=== PATIENT | female | born 1980 | race African-American/Black ===

== ENCOUNTER 2016-07-18 18:21 | Inpatient (IN) | payer BC ==
--- NOTE | ~2016-07-18 | OP ---
Record Of Operation [facility] [address] [place]. [address] NAME: POONAM AGRAWAL : 78 STATUS : ADM IN PAT#: [id number] AGE: 35 ADM/REG DATE : 07/18/16 MR#: [id number] REPORT SERV DATE: 07/22/16 DICTATED BY: MADELAINE TELLEZ DATE: 07/22/16 REPORT STATUS : Draft TRANSCRIBED BY: WILL DATE: 07/22/16 DATE OF PROCEDURE: 07/22/2016 TITLE OF PROCEDURE: Central venous catheter placement. INDICATIONS: Shock and need for central access. PROCEDURE NOTE: A time-out was completed verifying the correct patient and procedure. The patient was placed in a dependent position. The patient's right neck was prepped and draped in a sterile fashion. 1% lidocaine was used to anesthetize the surrounding skin area. A triple-lumen catheter was introduced into the right internal jugular vein using the Seldinger technique under ultrasound guidance. The catheter was threaded smoothly over the wire and appropriate blood return was obtained. Each lumen of the catheter was evacuated of air and flushed with sterile saline. The catheter was then sutured in place to the skin and a sterile dressing applied. I was present for the entire procedure. Chest x-ray was ordered to assess for pneumothorax. The patient tolerated the procedure well, and there were no complications. SHYAM/WILL Madelaine Tellez MD / [id number] CC: Yolanda Hamm M.D.
--- NOTE | ~2016-07-18 | DS ---
Discharge Summary [facility] [id number] [place]. [address] NAME: POONAM AGRAWAL : 78 STATUS : DIS IN PAT#: [id number] AGE: 35 ADM/REG DATE : 07/18/16 MR#: [id number] REPORT SERV DATE: 07/28/16 DICTATED BY: MIKE REDDY II DATE: 07/28/16 REPORT STATUS : Draft TRANSCRIBED BY: MODL DATE: 07/28/16 ADMISSION DATE: 07/18/2016 DISCHARGE DATE: 07/28/2016 DISCHARGE DIAGNOSES: 1. Clostridium difficile colitis. 2. Septic shock. 3. Acute thrombocytopenia, likely secondary to the above. 4. Anemia. 5. Chronic hypoxic respiratory failure. 6. Elevated liver function tests, likely from septic shock. 7. History of multiple deep venous thromboses/pulmonary emboli, on chronic Coumadin. 8. History of lupus. 9. Connective tissue disease and rheumatoid arthritis, on chronic prednisone. 10.Factor V Leiden. 11.Diabetes mellitus type 2. 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 13.Chronic pain, on chronic narcotics. 14.Suspected gastroparesis. 15.Reported hematochezia and epistaxis prior to admission. 16.Hematuria. CONSULT: 1. Dr. Cline with Urology. 2. Dr. Neo with GI. 3. Dr. Tellez and Dr. Allen with Critical Care. 4. Dr. Urena with Infectious Disease. PROCEDURES: EGD and colonoscopy by Dr. Noe showing normal small bowel, stomach, GE junction, and esophagus. Colon showed normal colon with a few diverticula in the ascending colon and descending colon as well as grade 2 hemorrhoids. Random biopsies taken. BRIEF HISTORY OF PRESENT ILLNESS: The patient is a 35-year-old female with a complicated past medical history as per above, who presented to [facility] with reports of nosebleeds, rectal bleeding, hematuria, and weakness. For detailed history and physical examination, please see Dr. Murdock's note from 07/19/2015. HOSPITAL COURSE: On admission, the patient's white count was 11, platelets 320, INR 1.6. The concern was for possible GI bleeding; however, stool guaiac was negative x3. Also, her initial urinalysis showed mostly blood but also 21 white cells and was initially started on meropenem. She subsequently began having diarrhea as well as lightheadedness, nausea and became hypotensive as well as developed a fever of 101. Her procalcitonin went to 4.6, her creatinine thom to 1.4, and lactic acid up to 6.7. Her liver enzymes also went up to 645 and 1100 with a white count of 17. Her platelets also began to drop with a normal urinalysis. She was transferred to the ICU, placed on Levophed. Infectious Disease was Discharge Summary [address] [place]. [address] NAME: POONAM AGRAWAL : 79 STATUS : DIS IN PAT#: [id number] AGE: 35 ADM/REG DATE : 07/18/16 MR#: [id number] REPORT SERV DATE: 07/28/16 DICTATED BY: MIKE REDDY II DATE: 07/28/16 REPORT STATUS : Draft TRANSCRIBED BY: WILL DATE: 07/28/16 consulted and found the patient to have C. diff. She was placed on her p.o. vancomycin and IV Flagyl. Subsequently, the patient's white count has come down. Her diarrhea has improved. She was taken off pressors and subsequently transferred out of the ICU. Her hemoglobin also dropped down to as well as 8.8. GI did an EGD and colonoscopy with the above-mentioned normal results. Her acute anemia was possibly secondary to prior bleeding with IV fluids and septic shock. Currently, her hemoglobin is trending up to 9.5. There is no evidence of bleeding, and she seemed to be stabilized. Her platelet counts also dropped down to as low as 67 before trending back up, currently already back to 314. A peripheral smear was done given the patient's history of TTP and was negative for schistocytes, and her platelets appeared normal though low. It seems her thrombocytopenia is likely related to her septic shock in the setting of C. diff colitis. Otherwise, the patient appears to be back to her baseline. Her Coumadin has been restarted and her INR back to 1.9. Her INR was subtherapeutic on admission, and she was getting a fairly low dose of 1.5 mg of Coumadin daily. She has been getting doses of 5 mg over the last two days, so we will increase her home dose to 2 mg daily and have her follow up for a repeat INR as soon as possible this week. Regarding her rheumatologic history, she continues to be on prednisone 20 mg daily. Her leflunomide and Humira have been on hold, and she will need to follow up with her embedded linux developer. She also is still on 2 to 3 L nasal cannula consistent with her home dose. Her chest x-ray had shown stable cardiomegaly without acute cardiac decompensation. Other lab data from admission included a negative HIT panel. A hep B surface antibody quant of 5.4, which is apparently low, is supposed to greater than 10. Hep C antibody nonreactive. DAGO 1:160 homogeneous. Upper extremity Doppler with a right upper extremity superficial cephalic vein acute thrombus. Normal alpha-1 antitrypsin, ceruloplasmin, hep A, and haptoglobin of 258. Her liver enzymes also trended down. At this point, she is stable for discharge though will need followup with her primary care physician as well as her embedded linux developer. Apparently, she has been referred to [facility]. She will continue vancomycin q.i.d. for nine more days per Dr Urena. DISCHARGE MEDICATIONS: 1. Norvasc 2.5 mg p.o. daily. 2. Os-Jj with vitamin D 500 mg p.o. daily. 3. Ferrous sulfate 300 mg p.o. t.i.d. 4. Levemir 32 units subcu daily. 5. Insulin aspart per sliding scale. 6. Metoprolol tartrate 50 mg p.o. b.i.d. 7. Protonix 40 mg p.o. b.i.d. 8. Potassium chloride 10 mEq p.o. daily. 9. Lyrica 150 mg p.o. b.i.d. 10.Carafate 1 g p.o. a.c. and at bedtime. 11.Coumadin 2 mg p.o. daily. 12.Klonopin 1 mg p.o. b.i.d. 13.Prednisone 20 mg p.o. daily. 14.Symbicort two puffs inhaled b.i.d. p.r.n. 15.Benadryl 25 mg p.o. t.i.d. p.r.n. 16.MiraLAX p.r.n. 17.Combivent 2 puffs t.i.d. p.r.n. 18.Albuterol p.r.n. Discharge Summary [place] [id number] [address] NAME: POONAM AGRAWAL : 79 STATUS : DIS IN PAT#: [id number] AGE: 35 ADM/REG DATE : 07/18/16 MR#: [id number] REPORT SERV DATE: 07/28/16 DICTATED BY: MIKE REDDY II DATE: 07/28/16 REPORT STATUS : Draft TRANSCRIBED BY: WILL DATE: 07/28/16 19.Hydralazine 25 mg p.o. t.i.d. 20.Albuterol p.r.n. 21.Tramadol 50 mg p.o. b.i.d. p.r.n. 22.Phenergan p.r.n. 23.Dilaudid 4 mg p.o. q.4 hours p.r.n. pain. DISCHARGE INSTRUCTIONS: The patient will be discharged home and follow up with her primary care physician, Dr. Epi Almanza this week for followup INR, CBC, CMP. MORA/WILL Mike Reddy II, MD / [id number]
--- NOTE | ~2016-07-18 | CN ---
Consultation Report [place] [id number] [place]. [address] NAME: POONAM AGRAWAL : 79 STATUS : ADM IN PAT#: [id number] AGE: 35 ADM/REG DATE : 07/18/16 MR#: [id number] REPORT SERV DATE: 07/20/16 DICTATED BY: PASQUALE JIMENEZ DATE: 07/20/16 REPORT STATUS : Draft TRANSCRIBED BY: MODL DATE: 07/20/16 CONSULTATION DATE OF CONSULTATION: 07/20/2016 HISTORY OF PRESENT ILLNESS: Ms. Saurabh Melo is a lady, who has a history of lupus, multiple episodes of pulmonary embolism, is on chronic anticoagulation with Coumadin. She was admitted one month ago and was found to have an INR of 7.5, and was sent home. She had upper endoscopy done which showed large quantity of food in the stomach suggestive of gastroparesis and was sent home with advice to come back for a colonoscopy as an outpatient. The patient has presented with complaints of bleeding from the nose, bleeding from the rectum, and hematuria, and has a hemoglobin which is 11.5, which is higher than what she presented with. REVIEW OF SYSTEMS: A 10-point review of system is normal other than for the GI bleeding. PAST MEDICAL HISTORY: Significant for lupus, rheumatoid arthritis, mixed connective tissue disease, recurrent DVT and PE, currently on Coumadin; history of multi for central venous catheter infections, requiring plasmapheresis; hypertension; insulin-dependent diabetes mellitus, type 2; chronic hypoxic respiratory failure, on 2 L of nasal cannula; recurrent E. coli urinary tract infection; history of Rika, fungemia, and streptococcus bacteremia; history of chronic pain on multiple narcotics use; possible gastroparesis; and highly suspicious for illicit drug use. PAST SURGICAL HISTORY: Ureteral stent placement, abdominal hysterectomy, right shoulder surgery, tonsillectomy, cholecystectomy, and . CURRENT MEDICATIONS: Humira subcu every two weeks, Norvasc 2.5 mg daily, Symbicort two puffs inhalation b.i.d., calcium with vitamin D 500 mg daily, Klonopin 1 mg b.i.d., Benadryl 25 mg p.o. t.i.d. p.r.n., ferrous sulfate 300 mg one tab t.i.d., insulin sliding scale, Combivent inhaler, Arava 10 mg daily, metoprolol 50 mg p.o. b.i.d., Protonix 40 mg b.i.d., MiraLAX 17 g p.o. b.i.d., potassium chloride 10 mEq daily, prednisone 20 mg daily, Lyrica 150 mg b.i.d., Phenergan 25 mg q.8 hours, Carafate 10 mL three times a day, tramadol 50 mg b.i.d. p.r.n., and Coumadin 1 mg daily. SOCIAL HISTORY: Denies any alcohol, IV drug use, or any cigarettes. FAMILY HISTORY: Significant for coronary artery disease, and lupus in her mother. LABORATORY DATA: Show a hemoglobin of 11.58, platelet count is 329. INR is 1.4. Sodium is 145, potassium is 3.3, chloride is 108, and creatinine is 0.87. EKG is normal. PHYSICAL EXAMINATION: Consultation Report [address] [address] NAME: POONAM AGRAWAL : 79 STATUS : ADM IN [facility]#: [id number] AGE: 35 ADM/REG DATE : 07/18/16 MR#: [id number] REPORT SERV DATE: 07/20/16 DICTATED BY: PASQUALE JIMENEZ DATE: 07/20/16 REPORT STATUS : Draft TRANSCRIBED BY: WILL DATE: 07/20/16 VITAL SIGNS: Her temperature is normal. NECK: Supple. Trachea is central. Carotids are well felt on both sides. CARDIOVASCULAR: S1 and S2 are heard. There is no S3. EXTREMITIES: Dorsalis pedis and posterior tibial are well felt on both sides. IMPRESSION: 1. History of bleeding from the rectum. 2. History of epistaxis and hematuria. 3. Lupus erythematosus, history of recurrent deep vein thrombosis. Insulin-dependent diabetes mellitus, multiple mixed connective tissue disease with rheumatoid arthritis and lupus. PLAN: The patient needs to be taken off Coumadin and Lovenox, time to do the procedure, we will do a colonoscopy, what I would suggest is keeping the patient off Coumadin, turning the patient on Lovenox 100 mg subcu q.12 hours, and doing a colonoscopy on Saturday. GRAHAM/WILL Pasquale Jimenez M.D. / [id number] CC: Pretty Neves M.D.
--- NOTE | ~2016-07-18 | CN ---
Consultation Report [facility] [address] [place]. [address] NAME: POONAM AGRAWAL : 79 STATUS : ADM Juany PAT#: [id number] AGE: 35 ADM/REG DATE : 07/18/16 MR#: [id number] REPORT SERV DATE: 07/19/16 DICTATED BY: KATIE MYRICK DATE: 07/19/16 REPORT STATUS : Draft TRANSCRIBED BY: MODL DATE: 07/19/16 CONSULTATION DATE OF CONSULTATION: 07/19/2016 IMPRESSION: 1. Gross hematuria secondary to Coumadin. This is recurrent and the patient is urinating without difficulty. 2. History of renal calculus; however, not present on 06/22/2016 CT scan. 3. Urinary tract infection, avoiding the culture. Last several have been E. coli, treated with amikacin. PLAN: 1. Await for culture and defer to I and D for treatment and possibly consider oral nightly prophylaxis at discharge. 2. No Fernandez catheter placement at this time. We will consider if patient having difficulty to void. 3. Dr. Aiken will follow tomorrow. HISTORY OF PRESENT ILLNESS: The is a 35-year-old -[place] female who has seen Dr. Aiken on several occasions at [facility]; however, she is an established outpatient with Dr. Bonilla at [place]. She presented with gross hematuria, rectal bleeding. The patient states this happens every time she starts Coumadin. She is on Coumadin for approximately for a week. She has not passed any clots. She is urinating well. The patient does also complain of urinary tract infection which she has been having on and off for the past several months but has only received treatment in hospital, nothing outpatient. The patient states that she has bladder spasm, and was diagnosed with IC in December with the cystoscopy. The patient took doxycycline for a short period of time to help with the spasms and that has resolved. However, the patient states she presents with the urinary tract infection with abdominal cramping and foul odor. The patient also states she has frequency and urgency causing her to wear incontinence pads. PAST MEDICAL HISTORY: Quite extensive and includes hypercoagulation, anticoagulation state with history of recurrent DVTs, history of pulmonary embolism. She is on Coumadin at this time, every other anticoagulation that she has tried, she develops clots on; however, the patient states that when she is on Coumadin, she has occult blood and gross hematuria. Other medical history includes rheumatoid arthritis, lupus, and gastroparesis. MEDICATIONS: Reviewed in chart. ALLERGIES: REVIEWED IN CHART. PHYSICAL EXAMINATION: GENERAL: She is a pleasant Aferican-[place] female, in no distress. She is alert, Consultation Report [place] [id number] [facility] [place]. [address] NAME: POONAM AGRAWAL : 79 STATUS : ADM Juany PAT#: [id number] AGE: 35 ADM/REG DATE : 07/18/16 MR#: [id number] REPORT SERV DATE: 07/19/16 DICTATED BY: KATIE MYRICK DATE: 07/19/16 REPORT STATUS : Draft TRANSCRIBED BY: WILL DATE: 07/19/16 oriented, and conversive. She is on supplemental O2 oxygen via nasal cannula. ABDOMEN: Mildly obese, soft, nontender, nondistended. No palpable masses noted. Complains of pain. VITAL SIGNS: The patient is afebrile. Blood pressure 135/94, respirations 18, pulse 78. LAB VALUES: Creatinine is 0.86. WBC is 8.7, INR is 1.4. CT completed on [facility] on 06/22/2016 showed no stones, masses, or cysts in the kidneys or the ureters and an unremarkable appearance of the bladder. She has had negative cytologies done previously; however, we have records of these. BRANDEE/WILL KATIE MYRICK NP / [id number] CC: Pretty Neves M.D.
--- NOTE | ~2016-07-18 | CN ---
Consultation Report [facility] [address] [place]. [address] NAME: POONAM AGRAWAL : 79 STATUS : ADM IN PAT#: [id number] AGE: 35 ADM/REG DATE : 07/18/16 MR#: [id number] REPORT SERV DATE: 07/23/16 DICTATED BY: SERGIO BURCH DATE: 07/23/16 REPORT STATUS : Draft TRANSCRIBED BY: MODKurtis DATE: 07/23/16 INFECTIOUS DISEASE CONSULT DATE OF CONSULTATION: REASON FOR CONSULT: C. diff diarrhea. HISTORY OF PRESENT ILLNESS: A 35 years old black lady with "mixed connective tissue disease," on chronic prednisone, chronic oxygen use, diabetes, history of PE and DVTs, reported history of factor V deficiency, history of kidney stones, who was seen in the past mostly by my colleague, Dr. Wade with ESBL E. coli UTI. She told the nurse that remotely she had a history of C. diff. She has been hospitalized numerous times for example. She was here in April with ESBL E. coli UTI, then in May between the and the when she grew the same organism. In June, with some history of bleeding or question of bleeding. On the 07 of July, she had an upper GI endoscopy by Dr. Noe that showed no lesions, but the stomach was filled up. She might have been hospitalized at [facility] as well. She states that she was taking nitrofurantoin at home. Previously, she received Humira and leflunomide but they were stopped by her armored cable machine operator. She came in on 07/18/2016 with bloody urine, blood clots in the stools, some blood when blowing her nose. To me, she did not report this but in the H and P, there was a mention of weakness and abdominal cramping. On admission, WBC was 11, platelets 320, INR 1.6, creatinine 0.9, bilirubin 0.1. Urine culture was done on the and was negative. Stool guaiac were negative x3. She was started on meropenem. Admission urinalysis showed 21 white blood cells, many red blood cells and rare bacteria. She states that three days ago she woke up with body aches. Then two days ago, she had body aches and she thought she is getting the flu. She states that during the night she got up to the bathroom and it is not uncommon for her to sit there for a long time and fall asleep. The nurse thought that she passed out, but she told the doctors she just fell asleep. Two days ago, when the nurse came to help her to get up to the bathroom. She was lightheaded and nauseated and then started having loose stools. Somewhere during the night, there is some nurse's notes mentioning that she was weak, lethargic, falling asleep. She had some hypoxemia, so she was put on non-rebreather mask, then later was transitioned to 4 L. At some point, she was transferred to ICU when she was hypotensive. An attempt was made to put a Fernandez catheter. In the process of trying to place a Fernandez, she had more runny stools. She had some fever yesterday with a temp of 101 and very abnormal lab work. A procalcitonin was up to 4.6, creatinine doubled from 0.8 to 1.4, lactic acid was 6.7. Liver enzymes went up to 645 and 1100, WBC increased to 17, platelets dropped to 147, urinalysis had just 4 white blood cells. She was started on IV fluids, Levophed as well as she had microbiologic evaluation. Blood cultures were drawn. Stool for C. diff came positive, so vancomycin p.o. and Flagyl IV were started as well. Consultation Report [place] [id number] [place]. [address] NAME: POONAM AGRAWAL : 78 STATUS : ADM IN [facility]#: [id number] AGE: 35 ADM/REG DATE : 07/18/16 MR#: [id number] REPORT SERV DATE: 07/23/16 DICTATED BY: SERGIO BURCH DATE: 07/23/16 REPORT STATUS : Draft TRANSCRIBED BY: MODL DATE: 07/23/16 With all these measures, today she is better. She started voiding. She had one bowel movement early this morning. She does not require pressors. She is on 4 L of oxygen. ABG showed pH of 7.36, pCO2 of 35, PO2 of 23, saturation 96% on 32%. Lab work improved except the platelets dropped further to 67, and INR is higher 2.2. Creatinine, liver enzymes, lactic acid, and white blood cell count, all improved. Chest x-ray showed no active disease. She had actually a CT of the chest, abdomen, and pelvis three days ago but without contrast that showed no significant abnormalities. The patient does not have abdominal pain. No dysuria. She has some chronic shortness of breath, and maybe some cough, although I have not heard her cough while I was in the room. She has maybe some mild nausea, but no vomiting. PAST MEDICAL HISTORY: As I mentioned above plus prior history of line infections and urinary tract infection, history of kidney stones, pulmonary hypertension. An echocardiogram done with this admission is of poor quality, but showed some moderate tricuspid regurgitation and right ventricular systolic dysfunction, history of hysterectomy, cholecystectomy, shoulder surgery. ALLERGIES: HERE LISTED IS COMPAZINE. SOCIAL HISTORY: She has four children. Because of her illness, she moved in with other family and she has two of her children with her. 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 PHYSICAL EXAMINATION: GENERAL: Done in presence of her nurse Basia, the patient is alert, awake. She has multiple broken decayed teeth, some down to the roots. LUNGS: Decreased sounds but no wheezes, rhonchi, or rales. HEART: Regular rhythm. Distant sounds. ABDOMEN: Obese. Nontender to palpation. SKIN: Skin with a dark spot on the left forearm, dark striae on the abdomen. ASSESSMENT AND PLAN: 1. Clostridium difficile diarrhea. 2. Shock that is now resolved. 3. Mixed connective tissue disease on chronic prednisone. 4. History of ESBL Escherichia coli. Urine colonization with occasional urinary tract infections. 5. History of deep venous thromboses and pulmonary embolisms, on chronic Coumadin. 6. History of TTP in 2016. 7. Other medical problems. She has improved with IV fluids, p.o. vancomycin, IV Flagyl. Blood cultures from yesterday are so far negative. Admission urine culture was negative. CT scan of the chest, abdomen, pelvis without contrast was unremarkable three days ago. She has poor dentition and will need eventually further evaluation since she is at risk for infection. Consultation Report [address] [place]. [address] NAME: POONAM AGRAWAL : 78 STATUS : ADM IN [facility]#: [id number] AGE: 35 ADM/REG DATE : 07/18/16 MR#: [id number] REPORT SERV DATE: 07/23/16 DICTATED BY: SERGIO BURCH DATE: 07/23/16 REPORT STATUS : Draft TRANSCRIBED BY: WILL DATE: 07/23/16 MARK/WILL Sergio Burch M.D. / [id number] CC: Pretty Neves M.D.
--- NOTE | ~2016-07-18 | HP ---
History And Physical [place] [id number] [facility] [place]. [address] NAME: POONAM WILEY : 78 STATUS : ADM Juany PAT#: [id number] AGE: 35 ADM/REG DATE : 07/18/16 MR#: [id number] REPORT SERV DATE: 07/19/16 DICTATED BY: MIKE CORDOBA DATE: 07/18/16 REPORT STATUS : Draft TRANSCRIBED BY: MODL DATE: 07/18/16 DATE OF ADMISSION: 07/18/2016 POINT OF ENTRY: [facility]. PRIMARY AUDITING CONTROL CLERK: Dr. Faulkner. PRIMARY PROJECT ESTIMATOR: None at this time, has been referred to [facility]. CHIEF COMPLAINT: Nosebleeds, rectal bleeding, and hematuria as well as weakness. HISTORY OF PRESENT ILLNESS: Ms Wiley is a 35-year-old female with a history of lupus, rheumatoid arthritis, mixed connective tissue disease, as well as recurrent DVT and PE, currently on Coumadin who presents to the emergency department today with multiple complaints including hematuria, rectal bleeding, as well as frequent nosebleeds as well as weakness. The patient was recently admitted to the Hospitalist Service in the middle of June for similar complaints at that time, was found to have an INR of 7.5. Her INR was reversed. She was found to have recurrent ESBL E. coli urinary tract infection. Her blood counts remained stable during her hospital stay, therefore, she was continued on her anticoagulation given her history of recurrent venothromboembolisms. GI was consulted, but felt that she could be evaluated as an outpatient. She reportedly underwent an outpatient EGD on 07/07/2016, which showed a normal-appearing stomach, small bowel and esophagus, however, it did show a stomach full of food concerning for gastroparesis. The patient states that her INR was last checked by Dr. Almanza about a week ago, at that time, it was still low, but still subtherapeutic; however, no dose adjustments were made. She states that she primarily has intermittent episodes of epistaxis, rectal bleeding, as well as hematuria and feels that her weakness has worsened over the past few days prompting her presentation to the emergency department. Initial evaluation in the emergency department is notable for INR of 1.6, hemoglobin 11.5, and hematocrit 38.0, which appears to be above her recent baseline in [facility]. Remainder of her labs are, otherwise, unremarkable. She was subsequently admitted to the Hospitalist Service for further evaluation and management. REVIEW OF SYSTEMS: Comprehensive review of systems, otherwise, negative unless listed in the history of present illness. PREVIOUS MEDICAL HISTORY: 1. Mixed connective tissue disease. 2. Lupus. 3. Rheumatoid arthritis. History And Physical [address] [place]. [address] NAME: POONAM WILEY : [birth year] STATUS : ADM Juany PAT#: [id number] AGE: 35 ADM/REG DATE : 07/18/16 MR#: [id number] REPORT SERV DATE: 07/19/16 DICTATED BY: MIKE CORDOBA DATE: 07/18/16 REPORT STATUS : Draft TRANSCRIBED BY: WILL DATE: 07/18/16 4. Recurrent DVT and PE, currently on Coumadin. 5. History of multiple central venous catheter infections. 6. History of TTP, requiring plasmapheresis. 7. Hypertension. 8. Insulin-dependent diabetes mellitus type 2. 9. Chronic hypoxic respiratory failure, on 2 liters of nasal cannula. 10.Recurrent ESBL E. coli urinary tract infections. 11.History of Rika fungemia and Streptococcus bacteremia. 12.Chronic pain, on multiple sedating narcotics. 13.Suspected diagnosis of gastroparesis. 14.Interstitial cystitis. 15.Suspicion for illicit IV drug use, status post removal of central venous catheter. PAST SURGICAL HISTORY: 1. . 2. Cholecystectomy. 3. Tonsillectomy. 4. Right shoulder surgery. 5. Abdominal hysterectomy. 6. Ureteral stent placement. ALLERGIES: COMPAZINE. HOME MEDICATIONS: 1. Humira, unknown strength, every week. 2. ProAir two puffs inhalation q.i.d. p.r.n. 3. Proventil one inhalation q.i.d. p.r.n. 4. Norvasc 2.5 mg daily. 5. Symbicort two puffs inhalation b.i.d. p.r.n. 6. Calcium with vitamin D 500 mg daily. 7. Klonopin 1 mg b.i.d. 8. Benadryl 25 mg t.i.d. p.r.n. 9. Ferrous sulfate 300 mg t.i.d. 10.Hydralazine 25 mg t.i.d. 11.Insulin sliding scale. 12.Combivent two puffs inhalation t.i.d. p.r.n. 13.Arava 10 mg daily. 14.Metoprolol 50 mg b.i.d. 15.Protonix 40 mg b.i.d. 16.MiraLAX 17 g b.i.d. 17.Potassium chloride 10 mEq daily. 18.Prednisone 20 mg daily. 19.Lyrica 150 mg b.i.d. 20.Phenergan 25 mg q.8 hours. 21.Carafate 1 g a.c. and h.s. 22.Tramadol 50 mg b.i.d. p.r.n. 23.Coumadin 1.5 mg daily. History And Physical [address] [address] NAME: POONAM WILEY : 79 STATUS : ADM Juany PAT#: [id number] AGE: 35 ADM/REG DATE : 07/18/16 MR#: [id number] REPORT SERV DATE: 07/19/16 DICTATED BY: MIKE CORDOBA DATE: 07/18/16 REPORT STATUS : Draft TRANSCRIBED BY: WILL DATE: 07/18/16 SOCIAL HISTORY: Denies any tobacco, alcohol, or illicits. FAMILY MEDICAL HISTORY: Mother with coronary artery disease and lupus. Father with hypertension. LABS AND IMAGIN. White count 11.1, hemoglobin 11.5, hematocrit 38.0, and platelets 325. INR is 1.6. 2. Sodium is 145, potassium 3.6, chloride 111, carbon dioxide 23, BUN 14, creatinine 0.90, glucose is 112, calcium is 8.4, protein 6.6, albumin 3.3, bilirubin is 0.1, ALT is 25, AST 14, and alkaline phosphatase is 116. 3. EKG per my review shows normal sinus rhythm with right bundle-branch block, otherwise, no evidence of acute ischemia or infarction. PHYSICAL EXAMINATION: VITAL SIGNS: Temperature is 97.2 degrees Fahrenheit, pulse of 90, respirations 16, saturating 92% on room air, and blood pressure 146/97. GENERAL: The patient is awake, alert, in no acute distress, and resting comfortably in bed. She is a well-developed, well-nourished, female. HEENT: Atraumatic and normocephalic. Moist mucous membranes. Pupils are equal, round, reactive to light and accommodation. Extraocular eye movements are intact. No scleral icterus. I appreciate some slight erythematous nasal mucosa, but no evidence of any active bleeding or stigmata of recent bleeding. NECK: No jugular venous distention. No carotid bruits. CARDIAC: Regular rate and rhythm. No murmurs or gallops. Normal S1 and S2. LUNGS: Clear to auscultation bilaterally. No wheezes, rhonchi, or rales. ABDOMEN: Soft, nontender, and nondistended. Good bowel sounds. No rebound, guarding, or rigidity. EXTREMITIES: Warm and well perfused. No cyanosis, clubbing, or edema. SKIN: Warm and dry. PSYCH: Affect appropriate. NEURO: Alert and oriented x3. Cranial nerves II through XII are grossly intact. Speech is normal. Gait not assessed. ASSESSMENT AND PLAN: Ms Wiley is a 35-year-old female who presents with multiple complaints including weakness, hematuria, epistaxis, and rectal bleeding. PROBLEM LIST: 1. Reported rectal bleeding. 2. Reported epistaxis. 3. Reported hematuria. 4. Weakness. 5. Subtherapeutic INR. 6. History of recurrent deep venous thrombosis and pulmonary embolism, on Coumadin. 7. Insulin-dependent diabetes mellitus type 2. PLAN: History And Physical [address] [address] NAME: POONAM WILEY : [birth year] STATUS : ADM Juany PAT#: [id number] AGE: 35 ADM/REG DATE : 07/18/16 MR#: [id number] REPORT SERV DATE: 07/19/16 DICTATED BY: MIKE CORDOBA DATE: 07/18/16 REPORT STATUS : Draft TRANSCRIBED BY: MODL DATE: 07/18/16 1. Reported rectal bleeding. Occult stool is pending at time of dictation. Her H and H are actually higher than what it has been in the last few admissions with stable vital signs; therefore, we will continue the patient's anticoagulation given her history of recurrent VTE. We will empirically place the patient on Protonix IV b.i.d. and check q.6 hours hemoglobin and hematocrits for the next 24 hours. Per results of occult stool, we may need to consult GI for evaluation. 2. Reported hematuria. Follow up urinalysis. 3. Report epistaxis. We will need to continue to observe. I do not appreciate any evidence of active bleeding or recent bleeding. 4. History of recurrent DVT and PE with subtherapeutic INR. We will continue the patient's home Coumadin to be managed by Pharmacy. We will place the patient on Lovenox bridging given her history of recurrent DVT and PE. 5. Weakness, unclear etiology. Check her urinalysis given history of recurring ESBL E. coli urinary tract infection. We will continue to monitor. 6. Insulin-dependent diabetes mellitus type 2. Place the patient on insulin sliding scale. 7. DVT prophylaxis, on Lovenox and Coumadin. 8. Code status. The patient wishes to be full code. CODY/MODL Mike Cordoba MD / [id number] CC: MD Epi Waldron M.D.
--- NOTE | ~2016-07-18 | OP ---
Record Of [place] [id number] [facility] [place]. [address] NAME: POONAM AGRAWAL : [birth year] STATUS : ADM IN [facility]#: [id number] AGE: 35 ADM/REG DATE : 07/18/16 MR#: [id number] REPORT SERV DATE: 07/25/16 DICTATED BY: PASQUALE JIMENEZ DATE: 07/25/16 REPORT STATUS : Draft TRANSCRIBED BY: MODL DATE: 07/25/16 DATE OF PROCEDURE: 07/25/2016 UPPER ENDOSCOPY AND COLONOSCOPY REPORT Ms. Mejia is a pleasant lady who has a history of using multiple drugs admitted with complaints of lower GI bleed. Upper endoscopy and colonoscopy is being done to rule out any source of bleeding. Indications, contraindications, side effects of procedure, and alternatives were discussed with the patient and informed consent was obtained. Patient was given anesthesia by the anesthesiologist. She had a total of 300 mg of propofol. UPPER ENDOSCOPY POSTOPERATIVE DIAGNOSES: 1. Normal small bowel. 2. Normal stomach and fundus. 3. Normal GE junction and esophagus. PROCEDURE IN DETAIL: The patient was placed in left lateral position and sedated. The scope was introduced under direct vision into the esophagus and then to the duodenal bulb. Second and third portions were normal. Scope was then brought back into the stomach. Antrum appeared normal. Scope was retroflexed. The body and fundus appeared normal. Scope was then brought back to the GE junction, which was normal. The rest of the esophagus was normal. IMPRESSION: 1. Small bowel normal. 2. Stomach normal. 3. GE junction and esophagus normal. COLONOSCOPY. POSTOPERATIVE DIAGNOSIS: 1. Normal colon. 2. Few diverticula in the ascending and descending colon. Random biopsies taken. 3. Hemorrhoids, grade 2. PROCEDURE IN DETAIL: The patient was placed in left lateral position and sedated. The scope was introduced under direct vision into the rectum and then slowly to the ileocecal valve and base of the cecum. The appendiceal orifice was identified. The scope was slowly withdrawn. The ascending colon showed a few diverticula. Random biopsies were taken. The transverse colon was normal. The descending colon and sigmoid also showed a few diverticula. Random biopsies were taken. The scope was retroflexed at 15 cm. The patient had grade 2 hemorrhoids. IMPRESSION: Record Of [place] [id number] [facility] [place]. [address] NAME: POONAM AGRAWAL : 78 STATUS : ADM IN PAT#: [id number] AGE: 35 ADM/REG DATE : 07/18/16 MR#: [id number] REPORT SERV DATE: 07/25/16 DICTATED BY: PASQUALE JIMENEZ DATE: 07/25/16 REPORT STATUS : Draft TRANSCRIBED BY: MODL DATE: 07/25/16 1. Normal colon. 2. Few diverticula in the ascending and descending colon. Random biopsies taken. 3. Hemorrhoids, grade 2. RECOMMENDATIONS: Could proceed to regular diet. GRAHAM/WILL Pasquale Jimenez M.D. / [id number] CC: Pretty Franklin M.D.
[2016-07-18 12:59] LABS: BASOPHILS 0.5 %; BASOPHILS ABSOLUTE 0.06 10/3/uL (0.0-0.16); EOSINOPHILS 0.7 %; EOSINOPHILS ABSOLUTE 0.08 10/3/uL (0.0-0.53); ER CBC TAT 0 Hrs 05 Mins; HEMOGLOBIN 11.5 g/dL (12.0-16.0); IMMATURE GRANULOCYTES 8.5 %; IMMATURE GRANULOCYTES ABSOLUTE 0.94 10/3/uL (0.0-0.11); LYMPHOCYTES 8.9 %; LYMPHOCYTES ABSOLUTE 0.98 10/3/uL (0.67-4.30); MANUAL DIFF NO %; MEAN CORPUS HGB CONC 30.3 g/dL (32.0-36.0); MEAN CORPUSCULAR HEMOGLOB 24.2 pg (26.0-34.0); MONOCYTES 10.2 %; MONOCYTES ABSOLUTE 1.13 10/3/uL (0.21-1.20); NEUTROPHILS 71.2 %; NEUTROPHILS ABSOLUTE 7.86 10/3/uL (2.02-8.40); PLATELET COUNT 325 10/3/uL (150-400); RED CELL COUNT 4.75 10/6/uL (4.0-5.6); WHITE BLOOD CELLS 11.1 10/3/uL (4.5-10.5)
[2016-07-18 13:04] LABS: INTERNATIONAL NORMAL RATI 1.6 UNITS (-); PARTIAL THROMBO TIME 25.8 SEC (22.5-37.2)
[2016-07-18 13:05] LABS: PROTIME (NOT ORD) 18.5 SEC (12.0-14.5)
[2016-07-18 13:17] LABS: ALBUMIN 3.3 G/DL (3.5-5.0); ALKALINE PHOSPHATASE 116 U/L (45-117); BUN (BLOOD UREA NITROGEN) 14 MG/DL (6-23); CALCIUM, SERUM 8.4 MG/DL (8.5-10.4); CHLORIDE, SERUM 111 MMOL/L (96-112); CO2 (CARBON DIOXIDE) 23 MMOL/L (24-34); GFR AFRICAN AMERICAN 95 ML/MIN (>=60); GFR NON AFRICAN AMERICAN 82 ML/MIN (>=60); GLOBULIN 3.3 G/DL (2.5-4.1); GLUCOSE, SERUM 112 MG/DL (60-99); POTASSIUM, SERUM 3.6 MMOL/L (3.5-5.3); SGOT(AST) 14 U/L (5-40); SGPT(ALT) 25 U/L (5-65); SODIUM, SERUM 145 MMOL/L (135-148); TOTAL BILIRUBIN 0.1 MG/DL (0-1.2); TOTAL PROTEIN 6.6 G/DL (6.0-8.5)
[2016-07-18 13:20] LABS: BAND NEUTROPHILS 5 %; EOSINOPHILS 1 %; EOSINOPHILS ABSOLUTE (CALC) 0.11 10/3/uL (0.0-0.53); ER DIFF TAT 0 Hrs 26 Mins; HYPOCHROMIA 1+ (3-10/OIF) (0-2/OIF); IMMATURE GRANS ABSOLUTE (CALC) 0.11 10/3/uL (0.0-0.11); LYMPHOCYTES 11 %; LYMPHOCYTES ABSOLUTE (CALC) 1.22 10/3/uL (0.67-4.30); METAMYELOCYTES 1 %; MONOCYTES 11 %; MONOCYTES ABSOLUTE (CALC) 1.22 10/3/uL (0.21-1.20); NEUTROPHILS ABSOLUTE (CALC) 8.44 10/3/uL (2.02-8.40); PLATELET ESTIMATE ADQ (ADEQUATE); RBC MORPHOLOGY ABN (NORMAL); SEGMENTED NEUTROPHIL (0) 71 %; TOTAL NUCLEATED CELLS 100
[~2016-07-18 18:21] MED LIST: *UNABLE3; ALEVE PM PO; APAP PO; APRES25 PO; ARAVA10 PO; ARIXTRA7.5 SC; BEANO PO; BEN25 PO; BUM5 PO; CARDCD180 PO; CLARIT10 PO; COMBIVENT RESPIM4 GM INH; COUMADIN3 MG PO; COUMADIN7.5 MG PO; DEMA20 PO; DIL1INJ IV; DIL2TAB PO; DIL4TAB PO; DIPHENHYDRAMINE PO; DITROXL5 PO; DSS PO; DURA50 TOP; ELIQUIS 5 MG TAB5 MG PO; FESO4 PO; FIORINALC PO; FLUCON2 PO; GAS-X80 MG PO; HUMIR1 SC; HUMIRA; HUMIRA PEN SC; HYDRALAZINE PO; HYDROCODONE BIT PO; IBU800 PO; INDE120LA PO; KDUR10 PO; KLONO1 PO; KLONO5 PO; KLOR-CON M2020 MEQ PO; L40 PO; LEVAQUIN750 MG PO; LEVEMFLXPN SC; LOP100 PO; LOP25 PO; LOP50 PO; LOPRESS HCT1 TAB PO; LYRICA75 PO; MACROBID PO; MEDROL16B PO; MEDROL32 MG PO; MEDROL4 PO; MEDROL8 MG PO; MIRALAXPKT PO; NAPROXEN PO; NEUR300 PO; NEUR400 PO; NEUR600 PO; NEUR800 PO; NORCO1 TAB PO; NORV10 PO; NORV5 PO; NOVOLOG SC; NOVOPEN SC; NYS500UDL PO; OS500+D PO; OXYCON10 PO; OXYCON20 PO; P10 PO; P20 PO; PCET PO; PERCOCET1 TA4 PO; PR25 PO; PRILO PO; PROAIR HFA INH; PROTONIX PO; PROVENTSOL INH; PROVHFA INH; PYR200 PO; REG PO; REG5 PO; SENTAB PO; SPIRO25 PO; SUCR PO; SYMBICORT 160/41 INH INH; TOPXL100 PO; TOPXL25 PO; TRAN200 PO; XARELTO10 MG PO; XARELTO20 MG PO; ZOFRAN4 PO; ZYVOXPO PO
[2016-07-18] MEDS ORDERED: HUMIR1 (19:37)
[2016-07-18] MEDS ORDERED: KLONO1 PO (19:48)
[2016-07-18] MEDS ORDERED: LYRICA150 MG PO (19:48)
[2016-07-18] MEDS ORDERED: ULTRAM50 PO (19:50)
[2016-07-18] MEDS ORDERED: PR25 PO (19:51)
[2016-07-18] MEDS ORDERED: DIL4TAB PO (19:53)
[2016-07-18] MEDS ORDERED: LEVEMFLXPN SQ (20:46)
[2016-07-18 21:27] LABS: WBC (NOT ORDERED) (RFLEX) 0 (0-5)
[2016-07-18 21:43] LABS: ASCORBIC ACID (UR NOT ORDER) NEG (NEG); BILIRUBIN, URINE NEGATIVE (NEG); KETONE, URINE NEGATIVE (NEG); LEUKOCYTE ESTERASE(NOT OR NEG (NEG)
[2016-07-19 00:51] LABS: HEMATOCRIT 37.1 % (36.0-48.0); HEMOGLOBIN 11.4 g/dL (12.0-16.0)
[2016-07-19 06:45] LABS: INTERNATIONAL NORMAL RATI 1.4 UNITS (-); PROTIME (NOT ORD) 16.9 SEC (12.0-14.5)
[2016-07-19 06:54] LABS: CALCIUM, SERUM 8.2 MG/DL (8.5-10.4); CHLORIDE, SERUM 108 MMOL/L (96-112); CO2 (CARBON DIOXIDE) 23 MMOL/L (24-34); CREATININE 0.86 MG/DL (0.55-1.02); GFR AFRICAN AMERICAN 101 ML/MIN (>=60); GFR NON AFRICAN AMERICAN 87 ML/MIN (>=60); POTASSIUM, SERUM 3.4 MMOL/L (3.5-5.3); SODIUM, SERUM 142 MMOL/L (135-148)
[2016-07-19 06:56] LABS: BUN (BLOOD UREA NITROGEN) 10 MG/DL (6-23); GLUCOSE, SERUM 75 MG/DL (60-99)
[2016-07-19 06:57] LABS: HEMATOCRIT 38.7 % (36.0-48.0); HEMOGLOBIN 11.7 g/dL (12.0-16.0); MEAN CORPUS HGB CONC 30.2 g/dL (32.0-36.0); MEAN CORPUSCULAR HEMOGLOB 24.2 pg (26.0-34.0); MEAN PLATELET VOLUME 9.4 fL (9.2-13.0); PLATELET COUNT 304 10/3/uL (150-400); RBC DISTRIBUTION WIDTH 22.1 % (12.0-16.0); RED CELL COUNT 4.84 10/6/uL (4.0-5.6); WHITE BLOOD CELLS 8.7 10/3/uL (4.5-10.5)
[2016-07-19 06:58] LABS: MANUAL DIFF YES %
[2016-07-19 07:30] LABS: BAND NEUTROPHILS 8 %; LYMPHOCYTES 21 %; LYMPHOCYTES ABSOLUTE (CALC) 1.83 10/3/uL (0.67-4.30); MONOCYTES 20 %; MONOCYTES ABSOLUTE (CALC) 1.74 10/3/uL (0.21-1.20); NEUTROPHILS ABSOLUTE (CALC) 5.13 10/3/uL (2.02-8.40); PLATELET ESTIMATE ADQ (ADEQUATE); SEGMENTED NEUTROPHIL (0) 51 %; TEARDROP SHAPED RBCS OCC (0-2/OIF); TOTAL NUCLEATED CELLS 100
[2016-07-19 13:52] LABS: HEMATOCRIT 40.2 % (36.0-48.0)
[2016-07-19 16:56] LABS: ASCORBIC ACID (UR NOT ORDER) NEG (NEG); BILIRUBIN, URINE NEGATIVE (NEG); KETONE, URINE NEGATIVE (NEG); LEUKOCYTE ESTERASE(NOT OR SMALL (NEG); WBC (NOT ORDERED) (RFLEX) 21 (0-5)
[2016-07-19 21:02] LABS: HEMATOCRIT 39.3 % (36.0-48.0); HEMOGLOBIN 11.9 g/dL (12.0-16.0)
[2016-07-20 04:52] LABS: BUN (BLOOD UREA NITROGEN) 8 MG/DL (6-23); CALCIUM, SERUM 8.7 MG/DL (8.5-10.4); CHLORIDE, SERUM 108 MMOL/L (96-112); CO2 (CARBON DIOXIDE) 26 MMOL/L (24-34); CREATININE 0.87 MG/DL (0.55-1.02); GFR AFRICAN AMERICAN 99 ML/MIN (>=60); GFR NON AFRICAN AMERICAN 86 ML/MIN (>=60); GLUCOSE, SERUM 67 MG/DL (60-99); POTASSIUM, SERUM 3.3 MMOL/L (3.5-5.3); SODIUM, SERUM 145 MMOL/L (135-148)
[2016-07-20 04:56] LABS: INTERNATIONAL NORMAL RATI 1.4 UNITS (-); PROTIME (NOT ORD) 16.7 SEC (12.0-14.5)
[2016-07-20 05:27] LABS: HEMATOCRIT 39.6 % (36.0-48.0); HEMOGLOBIN 11.7 g/dL (12.0-16.0); MEAN CORPUS HGB CONC 29.5 g/dL (32.0-36.0); MEAN CORPUSCULAR HEMOGLOB 23.5 pg (26.0-34.0); MEAN CORPUSCULAR VOLUME 79.7 fL (80-100); PLATELET COUNT 329 10/3/uL (150-400); RBC DISTRIBUTION WIDTH 22.5 % (12.0-16.0); RED CELL COUNT 4.97 10/6/uL (4.0-5.6); WHITE BLOOD CELLS 10.5 10/3/uL (4.5-10.5)
[2016-07-20 05:28] LABS: MANUAL DIFF YES %
[2016-07-20 06:12] LABS: BAND NEUTROPHILS 3 %; IMMATURE GRANS ABSOLUTE (CALC) 0.21 10/3/uL (0.0-0.11); LYMPHOCYTES 14 %; LYMPHOCYTES ABSOLUTE (CALC) 2.52 10/3/uL (0.67-4.30); METAMYELOCYTES 1 %; MONOCYTES 11 %; MONOCYTES ABSOLUTE (CALC) 0.11 10/3/uL (0.21-1.20); MYELOCYTES 1 %; NEUTROPHILS ABSOLUTE (CALC) 7.67 10/3/uL (2.02-8.40); PLATELET ESTIMATE ADQ (ADEQUATE); SEGMENTED NEUTROPHIL (0) 70 %; TOTAL NUCLEATED CELLS 100
[2016-07-20 10:41] LABS: FREE T4 1.69 NG/DL (0.76-1.46); IRON BINDING CAPACITY 231 MCG/DL (225-410)
[2016-07-21 07:46] LABS: INTERNATIONAL NORMAL RATI 1.2 UNITS (-); PROTIME (NOT ORD) 15.5 SEC (12.0-14.5)
[2016-07-21 07:56] LABS: BUN (BLOOD UREA NITROGEN) 8 MG/DL (6-23); CALCIUM, SERUM 8.2 MG/DL (8.5-10.4); CHLORIDE, SERUM 110 MMOL/L (96-112); CO2 (CARBON DIOXIDE) 24 MMOL/L (24-34); CREATININE 0.83 MG/DL (0.55-1.02); GFR AFRICAN AMERICAN 105 ML/MIN (>=60); GFR NON AFRICAN AMERICAN 91 ML/MIN (>=60); GLUCOSE, SERUM 88 MG/DL (60-99); POTASSIUM, SERUM 3.7 MMOL/L (3.5-5.3); SODIUM, SERUM 145 MMOL/L (135-148)
[2016-07-21 07:58] LABS: HEMATOCRIT 39.2 % (36.0-48.0); HEMOGLOBIN 11.9 g/dL (12.0-16.0); MEAN CORPUS HGB CONC 30.4 g/dL (32.0-36.0); MEAN CORPUSCULAR HEMOGLOB 24.1 pg (26.0-34.0); MEAN CORPUSCULAR VOLUME 79.5 fL (80-100); MEAN PLATELET VOLUME 9.7 fL (9.2-13.0); NUCLEATED RED BLOOD CELLS 0.5 /100WBC (0-0); RBC DISTRIBUTION WIDTH 22.4 % (12.0-16.0); RED CELL COUNT 4.93 10/6/uL (4.0-5.6); WHITE BLOOD CELLS 11.1 10/3/uL (4.5-10.5)
[2016-07-21 08:48] LABS: MANUAL DIFF YES %; PLATELET COUNT 250 10/3/uL (150-400)
[2016-07-21 08:49] LABS: BAND NEUTROPHILS 3 %; LYMPHOCYTES 21 %; METAMYELOCYTES 1 %; MICROCYTES 1+ (5-10/OIF) (0-5/OIF); MONOCYTES 17 %; MYELOCYTES 1 %; PLATELET ESTIMATE ADQ (ADEQUATE); POLYCHROMASIA 1+ (2-5/OIF) (0-1/OIF); SEGMENTED NEUTROPHIL (0) 57 %; TOTAL NUCLEATED CELLS 100
[2016-07-21 08:50] LABS: GIANT PLATELET RARE; MACROCYTES 1+ (5-10/OIF) (0-5/OIF)
[2016-07-22 05:26] LABS: HEMATOCRIT 37.5 % (36.0-48.0); HEMOGLOBIN 11.1 g/dL (12.0-16.0); MEAN CORPUS HGB CONC 29.6 g/dL (32.0-36.0); MEAN CORPUSCULAR HEMOGLOB 23.8 pg (26.0-34.0); MEAN CORPUSCULAR VOLUME 80.5 fL (80-100); MEAN PLATELET VOLUME 9.8 fL (9.2-13.0); NUCLEATED RED BLOOD CELLS 1.5 /100WBC (0-0); RBC DISTRIBUTION WIDTH 22.6 % (12.0-16.0); RED CELL COUNT 4.66 10/6/uL (4.0-5.6)
[2016-07-22 05:27] LABS: MANUAL DIFF YES %; PLATELET COUNT 147 10/3/uL (150-400); WHITE BLOOD CELLS 17.2 10/3/uL (4.5-10.5)
[2016-07-22 05:31] LABS: INTERNATIONAL NORMAL RATI 1.4 UNITS (-); PROTIME (NOT ORD) 17.3 SEC (12.0-14.5)
[2016-07-22 05:38] LABS: CHLORIDE, SERUM 107 MMOL/L (96-112); CO2 (CARBON DIOXIDE) 22 MMOL/L (24-34); POTASSIUM, SERUM 3.9 MMOL/L (3.5-5.3); SODIUM, SERUM 142 MMOL/L (135-148)
[2016-07-22 05:39] LABS: BUN (BLOOD UREA NITROGEN) 14 MG/DL (6-23); CREATININE 1.42 MG/DL (0.55-1.02); GFR AFRICAN AMERICAN 55 ML/MIN (>=60); GFR NON AFRICAN AMERICAN 47 ML/MIN (>=60); GLUCOSE, SERUM 141 MG/DL (60-99)
[2016-07-22 06:06] LABS: ANISOCYTOSIS 1+ (5-10/OIF) (0-5/OIF); EOSINOPHILS 1 %; EOSINOPHILS ABSOLUTE (CALC) 0.17 10/3/uL (0.0-0.53); IMMATURE GRANS ABSOLUTE (CALC) 0.34 10/3/uL (0.0-0.11); LYMPHOCYTES 31 %; LYMPHOCYTES ABSOLUTE (CALC) 5.33 10/3/uL (0.67-4.30); METAMYELOCYTES 2 %; MONOCYTES 12 %; MONOCYTES ABSOLUTE (CALC) 2.06 10/3/uL (0.21-1.20); NEUTROPHILS ABSOLUTE (CALC) 9.29 10/3/uL (2.02-8.40); SEGMENTED NEUTROPHIL (0) 54 %; TOTAL NUCLEATED CELLS 100
[2016-07-22 06:07] LABS: PLATELET ESTIMATE SLT DEC (ADEQUATE)
[2016-07-22 08:57] LABS: INSTRUMENT SERIAL # 8083
[2016-07-22 08:58] LABS: ALLENS TEST Pos; BE (BASE EXCESS) -7.1 MEQ/L (0 +/- 2.5); CARBOXYHEMOGLOBIN 0.6 % (0-3); DEVICE NC; HCO3 (ACTUAL BICARBONATE) 16.3 MEQ/L (23-27); HEMOBLOGIN CONTENT 11.8 G/DL (12-16); METHEMOGLOBIN 0.1 % (0-3); O2 CONTENT 15.5 VOL% (18-24); PCO2 (CO2 TENSION) 27 MMHG (35-45); PO2 (O2 TENSION) 72 MMHG (79-93); SAMPLE Arterial
[2016-07-22 09:54] LABS: ASCORBIC ACID (UR NOT ORDER) NEG (NEG); BILIRUBIN, URINE NEGATIVE (NEG); KETONE, URINE TRACE MG/DL (NEG); LEUKOCYTE ESTERASE(NOT OR NEG (NEG); WBC (NOT ORDERED) (RFLEX) 4 (0-5)
[2016-07-22 17:09] LABS: D-DIMER QUANTITATIVE 1.96 ug/mLFEU (< 0.50)
[2016-07-22 20:20] LABS: BE (BASE EXCESS) -5.3 MEQ/L (0 +/- 2.5); CARBOXYHEMOGLOBIN 0.3 % (0-3); DEVICE NC; HCO3 (ACTUAL BICARBONATE) 19.5 MEQ/L (23-27); HEMOBLOGIN CONTENT 11.1 G/DL (12-16); INSTRUMENT SERIAL # 8083; METHEMOGLOBIN 0.1 % (0-3); O2 CONTENT 15.3 VOL% (18-24); OPERATOR ID 23712; PCO2 (CO2 TENSION) 35 MMHG (35-45); PO2 (O2 TENSION) 106 MMHG (79-93); SAMPLE Arterial; pH 7.36 (7.37-7.43)
[2016-07-22 21:26] LABS: HEMATOCRIT 34.5 % (36.0-48.0); HEMOGLOBIN 10.4 g/dL (12.0-16.0); MEAN CORPUS HGB CONC 30.1 g/dL (32.0-36.0); MEAN CORPUSCULAR HEMOGLOB 24.1 pg (26.0-34.0); RBC DISTRIBUTION WIDTH 22.6 % (12.0-16.0); RED CELL COUNT 4.31 10/6/uL (4.0-5.6); WHITE BLOOD CELLS 16.5 10/3/uL (4.5-10.5)
[2016-07-22 21:29] LABS: MANUAL DIFF YES %; PLATELET COUNT 74 10/3/uL (150-400)
[2016-07-22 21:40] LABS: A/G RATIO 0.9 (0.7-1.9); ALBUMIN 2.7 G/DL (3.5-5.0); BUN (BLOOD UREA NITROGEN) 16 MG/DL (6-23); CALCIUM, SERUM 7.1 MG/DL (8.5-10.4); CHLORIDE, SERUM 113 MMOL/L (96-112); CO2 (CARBON DIOXIDE) 24 MMOL/L (24-34); CREATININE 1.29 MG/DL (0.55-1.02); GFR AFRICAN AMERICAN 62 ML/MIN (>=60); GFR NON AFRICAN AMERICAN 53 ML/MIN (>=60); GLOBULIN 2.9 G/DL (2.5-4.1); GLUCOSE, SERUM 154 MG/DL (60-99); POTASSIUM, SERUM 3.9 MMOL/L (3.5-5.3); SGOT(AST) 1185 U/L (5-40); SGPT(ALT) 645 U/L (5-65); SODIUM, SERUM 145 MMOL/L (135-148); TOTAL BILIRUBIN 0.3 MG/DL (0-1.2); TOTAL PROTEIN 5.6 G/DL (6.0-8.5)
[2016-07-22 21:43] LABS: ALKALINE PHOSPHATASE 174 U/L (45-117)
[2016-07-22 21:55] LABS: BAND NEUTROPHILS 1 %; IMMATURE GRANS ABSOLUTE (CALC) 0.83 10/3/uL (0.0-0.11); LYMPHOCYTES 11 %; LYMPHOCYTES ABSOLUTE (CALC) 1.82 10/3/uL (0.67-4.30); METAMYELOCYTES 2 %; MONOCYTES 3 %; MYELOCYTES 3 %; NEUTROPHILS ABSOLUTE (CALC) 13.37 10/3/uL (2.02-8.40); SEGMENTED NEUTROPHIL (0) 80 %; TOTAL NUCLEATED CELLS 100
[2016-07-22 21:56] LABS: ATYPICAL LYMPH OCC (0-2%) (0-5%); PLATELET ESTIMATE DEC (ADEQUATE)
[2016-07-22 21:57] LABS: POLYCHROMASIA 1+ (2-5/OIF) (0-1/OIF)
[2016-07-23 00:23] LABS: BE (BASE EXCESS) -5.5 MEQ/L (0 +/- 2.5); CARBOXYHEMOGLOBIN 0.3 % (0-3); HCO3 (ACTUAL BICARBONATE) 19.3 MEQ/L (23-27); HEMOBLOGIN CONTENT 11.2 G/DL (12-16); INSTRUMENT SERIAL # 8083; METHEMOGLOBIN 0.2 % (0-3); O2 CONTENT 15.2 VOL% (18-24); OPERATOR ID 23712; PCO2 (CO2 TENSION) 35 MMHG (35-45); PO2 (O2 TENSION) 93 MMHG (79-93); SAMPLE Arterial; pH 7.36 (7.37-7.43)
[2016-07-23 04:00] LABS: HEMOGLOBIN 9.6 g/dL (12.0-16.0); MEAN CORPUSCULAR HEMOGLOB 23.7 pg (26.0-34.0); PLATELET COUNT 67 10/3/uL (150-400); RBC DISTRIBUTION WIDTH 22.8 % (12.0-16.0); RED CELL COUNT 4.05 10/6/uL (4.0-5.6); WHITE BLOOD CELLS 15.1 10/3/uL (4.5-10.5)
[2016-07-23 04:02] LABS: INTERNATIONAL NORMAL RATI 2.2 UNITS (-); MANUAL DIFF YES %; PARTIAL THROMBO TIME 48.4 SEC (22.5-37.2)
[2016-07-23 04:10] LABS: A/G RATIO 0.9 (0.7-1.9); ALBUMIN 2.6 G/DL (3.5-5.0); BUN (BLOOD UREA NITROGEN) 15 MG/DL (6-23); CALCIUM, SERUM 7.3 MG/DL (8.5-10.4); CHLORIDE, SERUM 113 MMOL/L (96-112); CO2 (CARBON DIOXIDE) 26 MMOL/L (24-34); CREATININE 1.06 MG/DL (0.55-1.02); GFR AFRICAN AMERICAN 78 ML/MIN (>=60); GFR NON AFRICAN AMERICAN 67 ML/MIN (>=60); GLOBULIN 2.8 G/DL (2.5-4.1); GLUCOSE, SERUM 128 MG/DL (60-99); POTASSIUM, SERUM 3.9 MMOL/L (3.5-5.3); SGOT(AST) 835 U/L (5-40); SGPT(ALT) 636 U/L (5-65); SODIUM, SERUM 147 MMOL/L (135-148); TOTAL BILIRUBIN 0.3 MG/DL (0-1.2); TOTAL PROTEIN 5.4 G/DL (6.0-8.5)
[2016-07-23 04:11] LABS: ALKALINE PHOSPHATASE 158 U/L (45-117); DIRECT BILIRUBIN < 0.1 MG/DL (0.0-0.4); INDIRECT BILIRUBIN(NOT ORDER) 0.2 MG/DL (0.1-0.9)
[2016-07-23 04:13] LABS: PROTIME (NOT ORD) 24.2 SEC (12.0-14.5)
[2016-07-23 04:32] LABS: LYMPHOCYTES 14 %; LYMPHOCYTES ABSOLUTE (CALC) 2.11 10/3/uL (0.67-4.30); MONOCYTES 1 %; MONOCYTES ABSOLUTE (CALC) 0.15 10/3/uL (0.21-1.20); MYELOCYTES 2 %; NEUTROPHILS ABSOLUTE (CALC) 12.53 10/3/uL (2.02-8.40); SEGMENTED NEUTROPHIL (0) 83 %; TOTAL NUCLEATED CELLS 100
[2016-07-23 04:33] LABS: GIANT PLATELET FEW; PLATELET ESTIMATE DEC (ADEQUATE)
[2016-07-23 08:43] LABS: SMEAR FOR ABNORMAL CELLS SEE PATHOLOGY REPORT
[2016-07-23 13:39] LABS: HEPARIN-INDUCED PLATELET AB NEGATIVE (NEGATIVE); HIT PATIENT O.D. 0.022 OD (0.000-0.299)
[2016-07-23 14:51] LABS: INTERNATIONAL NORMAL RATI 1.7 UNITS (-)
[2016-07-23 14:56] LABS: HEMATOCRIT 30.1 % (36.0-48.0); HEMOGLOBIN 9.2 g/dL (12.0-16.0); MEAN CORPUS HGB CONC 30.6 g/dL (32.0-36.0); MEAN CORPUSCULAR HEMOGLOB 24.3 pg (26.0-34.0); MEAN CORPUSCULAR VOLUME 79.4 fL (80-100); MEAN PLATELET VOLUME 10.4 fL (9.2-13.0); NUCLEATED RED BLOOD CELLS 1.1 /100WBC (0-0); PLATELET COUNT 74 10/3/uL (150-400); PROTIME (NOT ORD) 20.1 SEC (12.0-14.5); RBC DISTRIBUTION WIDTH 22.7 % (12.0-16.0); RED CELL COUNT 3.79 10/6/uL (4.0-5.6); WHITE BLOOD CELLS 13.8 10/3/uL (4.5-10.5)
[2016-07-23 14:57] LABS: MANUAL DIFF YES %
[2016-07-23 15:04] LABS: ALBUMIN 2.6 G/DL (3.5-5.0); ALKALINE PHOSPHATASE 146 U/L (45-117); BUN (BLOOD UREA NITROGEN) 13 MG/DL (6-23); CALCIUM, SERUM 7.5 MG/DL (8.5-10.4); CHLORIDE, SERUM 111 MMOL/L (96-112); CO2 (CARBON DIOXIDE) 25 MMOL/L (24-34); CREATININE 0.96 MG/DL (0.55-1.02); DIRECT BILIRUBIN 0.1 MG/DL (0.0-0.4); GFR AFRICAN AMERICAN 88 ML/MIN (>=60); GFR NON AFRICAN AMERICAN 76 ML/MIN (>=60); GLUCOSE, SERUM 165 MG/DL (60-99); INDIRECT BILIRUBIN(NOT ORDER) 0.2 MG/DL (0.1-0.9); PHOSPHORUS, SERUM 1.1 MG/DL (2.5-4.5); POTASSIUM, SERUM 3.9 MMOL/L (3.5-5.3); SGOT(AST) 562 U/L (5-40); SGPT(ALT) 636 U/L (5-65); SODIUM, SERUM 145 MMOL/L (135-148); TOTAL BILIRUBIN 0.3 MG/DL (0-1.2); TOTAL PROTEIN 5.6 G/DL (6.0-8.5)
[2016-07-23 15:10] LABS: BAND NEUTROPHILS 6 %; BASOPHILS 1 %; BASOPHILS ABSOLUTE (CALC) 0.14 10/3/uL (0.0-0.16); IMMATURE GRANS ABSOLUTE (CALC) 0.14 10/3/uL (0.0-0.11); LYMPHOCYTES 3 %; LYMPHOCYTES ABSOLUTE (CALC) 0.41 10/3/uL (0.67-4.30); METAMYELOCYTES 1 %; NEUTROPHILS ABSOLUTE (CALC) 13.11 10/3/uL (2.02-8.40); SEGMENTED NEUTROPHIL (0) 89 %; TOTAL NUCLEATED CELLS 100
[2016-07-23 15:11] LABS: ELLIPTOCYTES 1+ (3-10/OIF) (0-2/OIF); HYPOCHROMIA 1+ (3-10/OIF) (0-2/OIF); PLATELET ESTIMATE DEC (ADEQUATE); TARGET CELLS OCC (1-2/OIF) (0-1/OIF)
[2016-07-23 15:12] LABS: MACROCYTES 1+ (5-10/OIF) (0-5/OIF); MICROCYTES 1+ (5-10/OIF) (0-5/OIF); SCHISTOCYTES OCC (0-2/OIF)
[2016-07-24 03:54] LABS: HEMATOCRIT 29.2 % (36.0-48.0); HEMOGLOBIN 8.9 g/dL (12.0-16.0); MANUAL DIFF YES %; MEAN CORPUS HGB CONC 30.5 g/dL (32.0-36.0); MEAN CORPUSCULAR HEMOGLOB 24.3 pg (26.0-34.0); MEAN CORPUSCULAR VOLUME 79.6 fL (80-100); PLATELET COUNT 76 10/3/uL (150-400); RBC DISTRIBUTION WIDTH 22.6 % (12.0-16.0); RED CELL COUNT 3.67 10/6/uL (4.0-5.6); WHITE BLOOD CELLS 13.2 10/3/uL (4.5-10.5)
[2016-07-24 04:14] LABS: ALBUMIN 2.4 G/DL (3.5-5.0); DIRECT BILIRUBIN 0.1 MG/DL (0.0-0.4); INDIRECT BILIRUBIN(NOT ORDER) 0.3 MG/DL (0.1-0.9); SGOT(AST) 501 U/L (5-40); SGPT(ALT) 632 U/L (5-65); TOTAL BILIRUBIN 0.4 MG/DL (0-1.2); TOTAL PROTEIN 5.1 G/DL (6.0-8.5)
[2016-07-24 04:19] LABS: ALKALINE PHOSPHATASE 115 U/L (45-117); PHOSPHORUS, SERUM 1.7 MG/DL (2.5-4.5)
[2016-07-24 04:24] LABS: ANISOCYTOSIS 1+ (5-10/OIF) (0-5/OIF); BAND NEUTROPHILS 11 %; ELLIPTOCYTES 1+ (3-10/OIF) (0-2/OIF); HYPOCHROMIA 1+ (3-10/OIF) (0-2/OIF); LYMPHOCYTES 10 %; LYMPHOCYTES ABSOLUTE (CALC) 1.32 10/3/uL (0.67-4.30); MACROCYTES 1+ (5-10/OIF) (0-5/OIF); METAMYELOCYTES 3 %; MICROCYTES 1+ (5-10/OIF) (0-5/OIF); MONOCYTES 8 %; MONOCYTES ABSOLUTE (CALC) 1.06 10/3/uL (0.21-1.20); NEUTROPHILS ABSOLUTE (CALC) 10.43 10/3/uL (2.02-8.40); PLATELET ESTIMATE SLT DEC (ADEQUATE); POLYCHROMASIA 1+ (2-5/OIF) (0-1/OIF); SEGMENTED NEUTROPHIL (0) 68 %; TOTAL NUCLEATED CELLS 100
[2016-07-24 06:09] LABS: BUN (BLOOD UREA NITROGEN) 11 MG/DL (6-23); CALCIUM, SERUM 7.7 MG/DL (8.5-10.4); CHLORIDE, SERUM 113 MMOL/L (96-112); CO2 (CARBON DIOXIDE) 24 MMOL/L (24-34); CREATININE 0.81 MG/DL (0.55-1.02); GFR AFRICAN AMERICAN 108 ML/MIN (>=60); GFR NON AFRICAN AMERICAN 93 ML/MIN (>=60); POTASSIUM, SERUM 3.7 MMOL/L (3.5-5.3); SODIUM, SERUM 147 MMOL/L (135-148)
[2016-07-24 06:10] LABS: GLUCOSE, SERUM 78 MG/DL (60-99)
[2016-07-24 07:30] LABS: INTERNATIONAL NORMAL RATI 1.5 UNITS (-); PROTIME (NOT ORD) 18.1 SEC (12.0-14.5)
[2016-07-25 04:14] LABS: HEMOGLOBIN 9.6 g/dL (12.0-16.0); MEAN CORPUS HGB CONC 29.5 g/dL (32.0-36.0); MEAN CORPUSCULAR HEMOGLOB 24.1 pg (26.0-34.0); MEAN CORPUSCULAR VOLUME 81.7 fL (80-100); PLATELET COUNT 81 10/3/uL (150-400); RBC DISTRIBUTION WIDTH 22.8 % (12.0-16.0); RED CELL COUNT 3.98 10/6/uL (4.0-5.6)
[2016-07-25 04:15] LABS: HEMATOCRIT 32.5 % (36.0-48.0); MANUAL DIFF YES %
[2016-07-25 04:36] LABS: A/G RATIO 0.8 (0.7-1.9); ALBUMIN 2.5 G/DL (3.5-5.0); CALCIUM, SERUM 7.8 MG/DL (8.5-10.4); CHLORIDE, SERUM 113 MMOL/L (96-112); CREATININE 0.73 MG/DL (0.55-1.02); GFR AFRICAN AMERICAN 123 ML/MIN (>=60); GFR NON AFRICAN AMERICAN 106 ML/MIN (>=60); GLOBULIN 3.2 G/DL (2.5-4.1); GLUCOSE, SERUM 68 MG/DL (60-99); PHOSPHORUS, SERUM 1.9 MG/DL (2.5-4.5); POTASSIUM, SERUM 3.7 MMOL/L (3.5-5.3); SGPT(ALT) 954 U/L (5-65); SODIUM, SERUM 144 MMOL/L (135-148); TOTAL BILIRUBIN 0.4 MG/DL (0-1.2); TOTAL PROTEIN 5.7 G/DL (6.0-8.5)
[2016-07-25 04:37] LABS: ALKALINE PHOSPHATASE 141 U/L (45-117); BUN (BLOOD UREA NITROGEN) 7 MG/DL (6-23); CO2 (CARBON DIOXIDE) 19 MMOL/L (24-34); DIRECT BILIRUBIN < 0.1 MG/DL (0.0-0.4); INDIRECT BILIRUBIN(NOT ORDER) 0.3 MG/DL (0.1-0.9); SGOT(AST) 733 U/L (5-40)
[2016-07-25 04:38] LABS: EOSINOPHILS 1 %; EOSINOPHILS ABSOLUTE (CALC) 0.12 10/3/uL (0.0-0.53); IMMATURE GRANS ABSOLUTE (CALC) 0.12 10/3/uL (0.0-0.11); LYMPHOCYTES 10 %; METAMYELOCYTES 1 %; MONOCYTES 10 %; NEUTROPHILS ABSOLUTE (CALC) 9.36 10/3/uL (2.02-8.40); PLATELET ESTIMATE DEC (ADEQUATE); SEGMENTED NEUTROPHIL (0) 78 %; TOTAL NUCLEATED CELLS 100
[2016-07-25 04:39] LABS: HYPOCHROMIA 1+ (3-10/OIF) (0-2/OIF); POLYCHROMASIA 1+ (2-5/OIF) (0-1/OIF)
[2016-07-25 05:53] LABS: INTERNATIONAL NORMAL RATI 1.3 UNITS (-); PARTIAL THROMBO TIME 24.8 SEC (22.5-37.2); PROTIME (NOT ORD) 16.4 SEC (12.0-14.5)
[2016-07-25 16:13] LABS: CHOL/HDL RATIO(NOT ORDER) 3.9 (0-5)
[2016-07-26 04:42] LABS: INTERNATIONAL NORMAL RATI 1.4 UNITS (-); PROTIME (NOT ORD) 17.2 SEC (12.0-14.5)
[2016-07-26 04:53] LABS: HEMATOCRIT 29.8 % (36.0-48.0); HEMOGLOBIN 8.8 g/dL (12.0-16.0); MEAN CORPUS HGB CONC 29.5 g/dL (32.0-36.0); MEAN CORPUSCULAR HEMOGLOB 23.5 pg (26.0-34.0); MEAN CORPUSCULAR VOLUME 79.7 fL (80-100); NUCLEATED RED BLOOD CELLS 2.7 /100WBC (0-0); RBC DISTRIBUTION WIDTH 22.6 % (12.0-16.0); RED CELL COUNT 3.74 10/6/uL (4.0-5.6); WHITE BLOOD CELLS 11.1 10/3/uL (4.5-10.5)
[2016-07-26 04:54] LABS: ALBUMIN 2.7 G/DL (3.5-5.0); BUN (BLOOD UREA NITROGEN) 6 MG/DL (6-23); CHLORIDE, SERUM 108 MMOL/L (96-112); CREATININE 0.74 MG/DL (0.55-1.02); DIRECT BILIRUBIN 0.1 MG/DL (0.0-0.4); GFR AFRICAN AMERICAN 121 ML/MIN (>=60); GFR NON AFRICAN AMERICAN 104 ML/MIN (>=60); INDIRECT BILIRUBIN(NOT ORDER) 0.5 MG/DL (0.1-0.9); PHOSPHORUS, SERUM 2.1 MG/DL (2.5-4.5); POTASSIUM, SERUM 3.2 MMOL/L (3.5-5.3); SGOT(AST) 277 U/L (5-40); SGPT(ALT) 851 U/L (5-65); SODIUM, SERUM 145 MMOL/L (135-148); TOTAL BILIRUBIN 0.6 MG/DL (0-1.2); TOTAL PROTEIN 5.8 G/DL (6.0-8.5)
[2016-07-26 04:55] LABS: ALKALINE PHOSPHATASE 124 U/L (45-117); CO2 (CARBON DIOXIDE) 27 MMOL/L (24-34); GLUCOSE, SERUM 97 MG/DL (60-99); MANUAL DIFF YES %; PLATELET COUNT 153 10/3/uL (150-400)
[2016-07-26 05:35] LABS: BAND NEUTROPHILS 5 %; HYPOCHROMIA 1+ (3-10/OIF) (0-2/OIF); IMMATURE GRANS ABSOLUTE (CALC) 0.33 10/3/uL (0.0-0.11); LYMPHOCYTES 15 %; LYMPHOCYTES ABSOLUTE (CALC) 1.67 10/3/uL (0.67-4.30); METAMYELOCYTES 3 %; MICROCYTES 1+ (5-10/OIF) (0-5/OIF); MONOCYTES 2 %; MONOCYTES ABSOLUTE (CALC) 0.22 10/3/uL (0.21-1.20); NEUTROPHILS ABSOLUTE (CALC) 8.88 10/3/uL (2.02-8.40); PLATELET ESTIMATE ADQ (ADEQUATE); POLYCHROMASIA 1+ (2-5/OIF) (0-1/OIF); SEGMENTED NEUTROPHIL (0) 75 %; TOTAL NUCLEATED CELLS 100
[2016-07-26 06:47] LABS: PROCALCITONIN 0.67 ng/mL (<0.5)
[2016-07-26 12:38] LABS: HEP B SUR AB QUANTITATIVE 5.44 mIU/mL (>=10.0)
[2016-07-26 13:17] LABS: HEPATITIS C ANTIBODY NON-REACTIVE (NON-REACT)
[2016-07-27 07:57] LABS: INTERNATIONAL NORMAL RATI 1.6 UNITS (-); PROTIME (NOT ORD) 18.7 SEC (12.0-14.5)
[2016-07-27 08:05] LABS: ALBUMIN 2.6 G/DL (3.5-5.0); ALKALINE PHOSPHATASE 135 U/L (45-117); BUN (BLOOD UREA NITROGEN) 9 MG/DL (6-23); CALCIUM, SERUM 8.2 MG/DL (8.5-10.4); CHLORIDE, SERUM 106 MMOL/L (96-112); CO2 (CARBON DIOXIDE) 28 MMOL/L (24-34); CREATININE 0.75 MG/DL (0.55-1.02); GFR AFRICAN AMERICAN 119 ML/MIN (>=60); GFR NON AFRICAN AMERICAN 103 ML/MIN (>=60); PHOSPHORUS, SERUM 2.5 MG/DL (2.5-4.5); POTASSIUM, SERUM 3.4 MMOL/L (3.5-5.3); SGOT(AST) 75 U/L (5-40); SGPT(ALT) 552 U/L (5-65); SODIUM, SERUM 145 MMOL/L (135-148); TOTAL BILIRUBIN 0.4 MG/DL (0-1.2); TOTAL PROTEIN 5.7 G/DL (6.0-8.5)
[2016-07-27 08:06] LABS: DIRECT BILIRUBIN < 0.1 MG/DL (0.0-0.4); GLUCOSE, SERUM 139 MG/DL (60-99); INDIRECT BILIRUBIN(NOT ORDER) 0.3 MG/DL (0.1-0.9)
[2016-07-27 08:07] LABS: ANA PATTERN HOMOGENEOUS
[2016-07-27 08:07] LABS: HEMATOCRIT 29.9 % (36.0-48.0); HEMOGLOBIN 8.8 g/dL (12.0-16.0); MEAN CORPUS HGB CONC 29.4 g/dL (32.0-36.0); MEAN CORPUSCULAR HEMOGLOB 23.7 pg (26.0-34.0); MEAN CORPUSCULAR VOLUME 80.4 fL (80-100); MEAN PLATELET VOLUME 10.8 fL (9.2-13.0); RBC DISTRIBUTION WIDTH 22.9 % (12.0-16.0); RED CELL COUNT 3.72 10/6/uL (4.0-5.6); WHITE BLOOD CELLS 11.9 10/3/uL (4.5-10.5)
[2016-07-27 08:08] LABS: MANUAL DIFF YES %; PLATELET COUNT 248 10/3/uL (150-400)
[2016-07-27 08:27] LABS: BAND NEUTROPHILS 5 %; EOSINOPHILS 3 %; EOSINOPHILS ABSOLUTE (CALC) 0.36 10/3/uL (0.0-0.53); LYMPHOCYTES 10 %; LYMPHOCYTES ABSOLUTE (CALC) 1.19 10/3/uL (0.67-4.30); MONOCYTES 11 %; MONOCYTES ABSOLUTE (CALC) 1.31 10/3/uL (0.21-1.20); NEUTROPHILS ABSOLUTE (CALC) 9.04 10/3/uL (2.02-8.40); SEGMENTED NEUTROPHIL (0) 71 %; TOTAL NUCLEATED CELLS 100
[2016-07-27 08:28] LABS: HYPOCHROMIA 1+ (3-10/OIF) (0-2/OIF); PLATELET ESTIMATE ADQ (ADEQUATE)
[2016-07-27 08:29] LABS: OVALOCYTES 1+ (3-10/OIF) (0-2/OIF); POIKILOCYTOSIS 1+ (5-10/OIF) (0-5/OIF)
[2016-07-27 18:53] LABS: ALPHA-1-ANTITRYPSIN 191 mg/dL (100-200); CERULOPLASMIN 32 mg/dL (7-220)
[2016-07-28 07:51] LABS: INTERNATIONAL NORMAL RATI 1.9 UNITS (-); PROTIME (NOT ORD) 21.3 SEC (12.0-14.5)
[2016-07-28 08:00] LABS: HEMOGLOBIN 9.5 g/dL (12.0-16.0); MEAN CORPUS HGB CONC 30.6 g/dL (32.0-36.0); MEAN CORPUSCULAR HEMOGLOB 24.7 pg (26.0-34.0); MEAN CORPUSCULAR VOLUME 80.5 fL (80-100); NUCLEATED RED BLOOD CELLS 0.7 /100WBC (0-0); PLATELET COUNT 314 10/3/uL (150-400); RED CELL COUNT 3.85 10/6/uL (4.0-5.6); WHITE BLOOD CELLS 13.4 10/3/uL (4.5-10.5)
[2016-07-28 08:02] LABS: A/G RATIO 0.9 (0.7-1.9); ALBUMIN 2.8 G/DL (3.5-5.0); ALKALINE PHOSPHATASE 140 U/L (45-117); BUN (BLOOD UREA NITROGEN) 11 MG/DL (6-23); CALCIUM, SERUM 8.5 MG/DL (8.5-10.4); CHLORIDE, SERUM 103 MMOL/L (96-112); CO2 (CARBON DIOXIDE) 29 MMOL/L (24-34); CREATININE 0.86 MG/DL (0.55-1.02); GFR AFRICAN AMERICAN 101 ML/MIN (>=60); GFR NON AFRICAN AMERICAN 87 ML/MIN (>=60); GLOBULIN 3.2 G/DL (2.5-4.1); MANUAL DIFF YES %; POTASSIUM, SERUM 3.3 MMOL/L (3.5-5.3); SGPT(ALT) 424 U/L (5-65); SODIUM, SERUM 145 MMOL/L (135-148); TOTAL BILIRUBIN 0.4 MG/DL (0-1.2)
[2016-07-28 08:03] LABS: GLUCOSE, SERUM 101 MG/DL (60-99); SGOT(AST) 48 U/L (5-40)
[2016-07-28 08:17] LABS: BAND NEUTROPHILS 6 %; EOSINOPHILS 1 %; EOSINOPHILS ABSOLUTE (CALC) 0.13 10/3/uL (0.0-0.53); IMMATURE GRANS ABSOLUTE (CALC) 0.67 10/3/uL (0.0-0.11); LYMPHOCYTES 7 %; LYMPHOCYTES ABSOLUTE (CALC) 0.94 10/3/uL (0.67-4.30); METAMYELOCYTES 5 %; MONOCYTES 6 %; NEUTROPHILS ABSOLUTE (CALC) 10.85 10/3/uL (2.02-8.40); PLATELET ESTIMATE ADQ (ADEQUATE); SEGMENTED NEUTROPHIL (0) 75 %; TOTAL NUCLEATED CELLS 100
[2016-07-28 08:18] LABS: MICROCYTES 1+ (5-10/OIF) (0-5/OIF); OVALOCYTES 1+ (3-10/OIF) (0-2/OIF); POLYCHROMASIA 1+ (2-5/OIF) (0-1/OIF)
[2016-07-28] MEDS ORDERED: VANCOCIN HCL125 MG PO/LIQ ×2 (11:34→11:43)
[2016-07-28 14:54] LABS: MITOCHONDRIAL ANTIBODY Negative (NEG)
[2016-11-21] MEDS ORDERED: ULTRAM50 PO (23:28)
[2016-11-21] MEDS ORDERED: LYRICA150 MG PO (23:28)
[2016-11-21] MEDS ORDERED: C5 PO (23:29)
[2016-11-21] MEDS ORDERED: HUMALOG SC (23:32)
[2016-11-21] MEDS ORDERED: MEDROL8 MG PO (23:33)
[2016-11-21] MEDS ORDERED: KLONO1 PO (23:33)
[2016-11-21] MEDS ORDERED: LOP100 PO (23:34)
[2016-11-21] MEDS ORDERED: PROVHFA INH (23:34)
[2016-11-21] MEDS ORDERED: OS500+D PO (23:36)
[2016-11-21] MEDS ORDERED: SUCR PO (23:37)
[2016-11-21] MEDS ORDERED: COMBIVENT RESPIM4 GM INH (23:38)
[2016-11-21] MEDS ORDERED: FERROUS SULFATE PO (23:38)
[2016-11-21] MEDS ORDERED: ACET500CAP PO (23:39)
[2016-11-21] MEDS ORDERED: PR25 PO (23:41)
[2016-11-21] MEDS ORDERED: DIL2TAB PO (23:42)
== END 2016-07-28 15:30 | disposition home or self-care (01) | DRG 871 ==
LOC: ER 18:21 → CDU1 18:59 → 6NO 20:59 → MIC 07-22 08:36 → 6NO 07-25 17:38
PROVIDERS: Emergency Medicine; Internal Medicine; Internal Medicine Critical Care Medicine; Internal Medicine Gastroenterology; Internal Medicine Pulmonary Disease
PROC: 05HM33Z Insertion of Infusion Device into Right Internal Jugular Vein, Percutaneous Approach (ICD-10-PCS; principal; 2016-07-22)
PROC: B543ZZA Ultrasonography of Right Jugular Veins, Guidance (ICD-10-PCS; 2016-07-22)
PROC: 0DJ08ZZ Inspection of Upper Intestinal Tract, Via Natural or Artificial Opening Endoscopic (ICD-10-PCS; 2016-07-25)
PROC: 0DBE8ZX Excision of Large Intestine, Via Natural or Artificial Opening Endoscopic, Diagnostic (ICD-10-PCS; 2016-07-25)
DX: A41.9 Sepsis, unspecified organism (principal); R65.21 Severe sepsis with septic shock; A04.7 Enterocolitis due to Clostridium difficile; J96.11 Chronic respiratory failure with hypoxia; I27.2 Other secondary pulmonary hypertension; K62.5 Hemorrhage of anus and rectum; M35.1 Other overlap syndromes; D68.51 Activated protein C resistance; N39.0 Urinary tract infection, site not specified; E11.43 Type 2 diabetes mellitus with diabetic autonomic (poly)neuropathy; K31.84 Gastroparesis; B96.20 Unspecified Escherichia coli [E. coli] as the cause of diseases classified elsewhere; R04.0 Epistaxis; R31.9 Hematuria, unspecified; T45.515A Adverse effect of anticoagulants, initial encounter; D69.59 Other secondary thrombocytopenia; M32.9 Systemic lupus erythematosus, unspecified; G89.29 Other chronic pain; M06.9 Rheumatoid arthritis, unspecified; K57.30 Diverticulosis of large intestine without perforation or abscess without bleeding; Z86.718 Personal history of other venous thrombosis and embolism; Z86.711 Personal history of pulmonary embolism; Z79.899 Other long term (current) drug therapy; Z79.01 Long term (current) use of anticoagulants; Z79.4 Long term (current) use of insulin; Z98.890 Other specified postprocedural states; Z90.710 Acquired absence of both cervix and uterus; Z90.49 Acquired absence of other specified parts of digestive tract; Z79.52 Long term (current) use of systemic steroids; Z16.12 Extended spectrum beta lactamase (ESBL) resistance; Z87.442 Personal history of urinary calculi; Z87.440 Personal history of urinary (tract) infections; Z99.81 Dependence on supplemental oxygen
CPT/HCPCS: 36415; 36600; 71010; 80048; 80053; 80061; 80069; 80076; 81001; 82103; 82140; 82150; 82248; 82272; 82390; 82607; 82805; 82962; 83010; 83036; 83550; 83605; 83735; 83880; 84100; 84145; 84439; 84443; 85014; 85018; 85025; 85379; 85384; 85610; 85730; 86022; 86039; 86255; 86706; 86708; 86803; 86850; 86900; 86901; 87040; 87086; 87493; 87493-59; 87641; 88305; 93005; 93971; 93975; 94640; 97162-GP; 97530-GP; 99285; A9270-GY; C8924; C8929; C9113; J1652; J2185; J2405; J2550; J3370; J3430; Q9957

== ENCOUNTER 2016-08-02 11:07 | Emergency (ER) | payer BC ==
[~2016-08-02 11:07] MED LIST changes: +HUMIR1; +LEVEMFLXPN SQ; +LYRICA150 MG PO; +ULTRAM50 PO; +VANCOCIN HCL125 MG PO/LIQ
[2016-08-02 11:10] LABS: ASCORBIC ACID (UR NOT ORDER) NEG (NEG); BILIRUBIN, URINE NEGATIVE (NEG); ER URINALYSIS TAT 0 Hrs 16 Mins; KETONE, URINE NEGATIVE (NEG); LEUKOCYTE ESTERASE(NOT OR SMALL (NEG); WBC (NOT ORDERED) (RFLEX) 13 (0-5)
[2016-08-02 11:13] LABS: NITRITE (URINE) NEG (NEG)
[2016-08-02 11:35] LABS: ER CBC TAT 0 Hrs 05 Mins; HEMATOCRIT 39.5 % (36.0-48.0); HEMOGLOBIN 11.6 g/dL (12.0-16.0); MANUAL DIFF YES %; MEAN CORPUS HGB CONC 29.4 g/dL (32.0-36.0); MEAN CORPUSCULAR HEMOGLOB 24.7 pg (26.0-34.0); MEAN PLATELET VOLUME 9.4 fL (9.2-13.0); PLATELET COUNT 461 10/3/uL (150-400); RBC DISTRIBUTION WIDTH 23.2 % (12.0-16.0)
[2016-08-02 11:46] LABS: PARTIAL THROMBO TIME 25.9 SEC (22.5-37.2); PROTIME (NOT ORD) 13.3 SEC (12.0-14.5)
[2016-08-02 11:51] LABS: LACTATE 1.6 MMOL/L (0.3-2.4)
[2016-08-02 11:52] LABS: ALBUMIN 3.5 G/DL (3.5-5.0); BUN (BLOOD UREA NITROGEN) 7 MG/DL (6-23); CALCIUM, SERUM 8.7 MG/DL (8.5-10.4); CHLORIDE, SERUM 106 MMOL/L (96-112); CO2 (CARBON DIOXIDE) 30 MMOL/L (24-34); CREATININE 0.95 MG/DL (0.55-1.02); GFR AFRICAN AMERICAN 89 ML/MIN (>=60); GFR NON AFRICAN AMERICAN 77 ML/MIN (>=60); GLOBULIN 3.6 G/DL (2.5-4.1); GLUCOSE, SERUM 144 MG/DL (60-99); POTASSIUM, SERUM 3.5 MMOL/L (3.5-5.3); SGOT(AST) 20 U/L (5-40); SGPT(ALT) 130 U/L (5-65); SODIUM, SERUM 143 MMOL/L (135-148); TOTAL BILIRUBIN 0.4 MG/DL (0-1.2); TOTAL PROTEIN 7.1 G/DL (6.0-8.5)
[2016-08-02 11:53] LABS: ALKALINE PHOSPHATASE 125 U/L (45-117)
[2016-08-02 12:00] LABS: BAND NEUTROPHILS 8 %; EOSINOPHILS 3 %; EOSINOPHILS ABSOLUTE (CALC) 0.21 10/3/uL (0.0-0.53); ER DIFF TAT 0 Hrs 30 Mins; IMMATURE GRANS ABSOLUTE (CALC) 0.35 10/3/uL (0.0-0.11); LYMPHOCYTES 14 %; LYMPHOCYTES ABSOLUTE (CALC) 0.98 10/3/uL (0.67-4.30); MACROCYTES 1+ (5-10/OIF) (0-5/OIF); METAMYELOCYTES 5 %; MONOCYTES 10 %; NEUTROPHILS ABSOLUTE (CALC) 4.76 10/3/uL (2.02-8.40); PLATELET ESTIMATE SLT INC (ADEQUATE); POLYCHROMASIA 1+ (2-5/OIF) (0-1/OIF); SEGMENTED NEUTROPHIL (0) 60 %; TOTAL NUCLEATED CELLS 100
[2016-08-02 12:19] LABS: PROCALCITONIN 0.06 ng/mL (<0.5)
[2016-11-21] MEDS ORDERED: LYRICA150 MG PO (23:28)
[2016-11-21] MEDS ORDERED: ULTRAM50 PO (23:28)
[2016-11-21] MEDS ORDERED: C5 PO (23:29)
[2016-11-21] MEDS ORDERED: HUMALOG SC (23:32)
[2016-11-21] MEDS ORDERED: KLONO1 PO (23:33)
[2016-11-21] MEDS ORDERED: MEDROL8 MG PO (23:33)
[2016-11-21] MEDS ORDERED: PROVHFA INH (23:34)
[2016-11-21] MEDS ORDERED: LOP100 PO (23:34)
[2016-11-21] MEDS ORDERED: OS500+D PO (23:36)
[2016-11-21] MEDS ORDERED: SUCR PO (23:37)
[2016-11-21] MEDS ORDERED: COMBIVENT RESPIM4 GM INH (23:38)
[2016-11-21] MEDS ORDERED: FERROUS SULFATE PO (23:38)
[2016-11-21] MEDS ORDERED: ACET500CAP PO (23:39)
[2016-11-21] MEDS ORDERED: PR25 PO (23:41)
[2016-11-21] MEDS ORDERED: DIL2TAB PO (23:42)
== END 2016-08-02 14:28 | disposition home or self-care (01) ==
LOC: ER 11:07
PROVIDERS: Hospitalist
DX: E86.0 Dehydration (principal); B96.89 Other specified bacterial agents as the cause of diseases classified elsewhere; N39.0 Urinary tract infection, site not specified; J44.9 Chronic obstructive pulmonary disease, unspecified; I10 Essential (primary) hypertension; M06.9 Rheumatoid arthritis, unspecified; E11.9 Type 2 diabetes mellitus without complications; M32.9 Systemic lupus erythematosus, unspecified; Z86.711 Personal history of pulmonary embolism; Z86.718 Personal history of other venous thrombosis and embolism; Z90.710 Acquired absence of both cervix and uterus; Z88.8 Allergy status to other drugs, medicaments and biological substances; Z79.4 Long term (current) use of insulin; Z79.01 Long term (current) use of anticoagulants; Z79.899 Other long term (current) drug therapy
CPT/HCPCS: 71010; 80053; 81001; 83605; 84145; 85025; 85610; 85730; 87040; 87077; 87086; 87186; 96374; 96375; 99284; J2405

== ENCOUNTER 2016-08-07 13:13 | Inpatient (IN) | payer BC ==
--- NOTE | ~2016-08-07 | HP ---
History And Physical [place] [address] [facility]. [address] NAME: POONAM AGRAWAL : [birth year] STATUS : ADM IN [facility]#: [id number] AGE: 35 ADM/REG DATE : 08/08/16 MR#: [id number] REPORT SERV DATE: 08/08/16 DICTATED BY: HAJA LOPEZ DATE: 08/07/16 REPORT STATUS : Draft TRANSCRIBED BY: WILL DATE: 08/07/16 DATE OF ADMISSION: 08/08/2016 CHIEF COMPLAINT: Watery stools with fevers. HISTORY OF PRESENT ILLNESS: This is a 35-year-old female with recent discharge from the hospital on 07/28/2016, for which at that time the patient was treated for septic shock with C. diff and ESBL urinary tract infection. The patient also has a known medical history of lupus on chronic steroid and rheumatoid arthritis and factor V Leiden deficiency on chronic anticoagulation. The patient re-presented to [facility] with complaint of fever and ongoing watery diarrhea and nausea and vomiting. She was seen in the ER and had a repeat stool, which was positive for C. diff, ordered by ER staff and the hospitalists were called to admit the patient into the hospital. She denies any chest pain. No shortness of breath. Does have intermittent epigastric discomfort. Also has complaints of arthralgias. According to the patient, with her last dose of Vancocin, she began developing fevers at home. REVIEW OF SYSTEMS: Please refer to HPI. PAST MEDICAL HISTORY: Septic shock, C. diff, hypoxia, PE/DVT, rheumatoid arthritis with connective tissue disorder, factor V Leiden, type 2 diabetes, ESBL, urinary tract infection, chronic pain management, hematuria, lupus, TTP, fungemia, and interstitial cystitis. PAST SURGICAL HISTORY: Cholecystectomy, tonsillectomy, , hysterectomy, right shoulder surgery, and ureteral stent per chart. ALLERGIES: ALLERGIES TO COMPAZINE. FAMILY HISTORY: Lupus and hypertension. HOME MEDICATIONS: Albuterol MDI two puffs inhaled b.i.d. p.r.n., amlodipine 5 mg p.o. b.i.d., Os-Jj plus D 500 mg p.o. q.a.m., Klonopin 1 mg p.o. b.i.d., diphenhydramine 25 mg p.o. three times a day p.r.n., hydralazine 25 mg p.o. t.i.d. p.r.n., Dilaudid 4 mg p.o. q.4 hours p.r.n., Levemir 32 units subcu q.a.m., Humalog sliding scale insulin, Combivent, Respimat one puff inhaled three times a day p.r.n., metoprolol tartrate 100 mg p.o. b.i.d., nystatin 5 mL p.o. t.i.d. p.r.n., Protonix 40 mg p.o. b.i.d., prednisone 20 mg p.o. daily, Lyrica 150 mg p.o. b.i.d., Carafate 1 g p.o. a.c. and at bedtime, Phenergan 25 mg p.o. q.4 hours p.r.n., tramadol 50 mg p.o. four times a day p.r.n., iron b.i.d., Motrin p.m., p.r.n. vanc, warfarin 3 mg p.o. q. supper. PHYSICAL EXAMINATION: VITAL SIGNS: Temp of 100.8, blood pressure 141/87 with a pulse of 108, respirations 15, and saturating 98%. GENERAL: The patient is alert and oriented x3, currently in no distress. History And Physical [address] [address] NAME: POONAM AGRAWAL : 79 STATUS : ADM IN [facility]#: [id number] AGE: 35 ADM/REG DATE : 08/08/16 MR#: [id number] REPORT SERV DATE: 08/08/16 DICTATED BY: HAJA LOPEZ DATE: 08/07/16 REPORT STATUS : Draft TRANSCRIBED BY: WILL DATE: 08/07/16 HEENT: Pupils equal, round, and reactive to light. Extraocular muscles are intact. Moist mucous membranes. CARDIOVASCULAR: S1, S2. Currently regular rate and rhythm. No appreciated rubs or gallops. No JVD. RESPIRATORY: Clear to auscultation bilaterally. No wheezes or crackles. No signs of tachypnea. ABDOMEN: Positive bowel sounds. Soft with mild tenderness to palpation in the epigastric area. No rebound. No abdominal distention. EXTREMITIES: 2+ pulse with 1+ pitting edema, bilateral lower extremity . NEURO: Cranial nerves II through XII grossly intact. Moves all four extremities. No neuro focal deficits. IMAGING: CT of the abdomen and pelvis without contrast showing no acute abdominal or pelvic pathology. There is a small 1 mm nonobstructing calculus in the midpole of the left kidney. LABORATORY DATA: Sodium 144, potassium 3.6, chloride 110, bicarb of 23, BUN of 4 with creatinine 0.72 with a glucose of 101, and albumin of 3.1. Total bilirubin of 0.3 and lipase of 170. White count of 5.9 with a hemoglobin of 11.3, platelet count 361. INR not performed. UA with specific gravity of 1.027, large amount of blood, small amount of leukocyte esterase, negative nitrites, and 108 white blood cells. ASSESSMENT AND PLAN: 1. Febrile illness. 2. Clostridium difficile diarrhea. 3. Urinary tract infection. 4. Factor V Leiden, chronic. 5. Type 2 diabetes. We will resume the patient's oral Vancocin. Suspect considering the patient is immunocompromised on chronic steroid as well as on a PPI making it harder to treat the patient's C diff; therefore, we will consult Infectious Disease for recommendations on longer tapering course of p.o. vanc and also recommend to hold PPI if tolerable. The patient's last EGD did not reveal any peptic ulcer disease. Also, we will check influenza swab and also we will await Infectious Disease consult/evaluation for recommendations concerning the patient's possibly UTI. The patient will be followed closely and will be admitted and seen by my colleagues on 08/08/2016, who will attend to this patient's care. FIORELLA/WILL Haja Lopez M.D. / [id number] CC: History And Physical [address] [facility] [address] NAME: POONAM AGRAWAL : [birth year] STATUS : ADM IN PAT#: [id number] AGE: 35 ADM/REG DATE : 08/08/16 MR#: [id number] REPORT SERV DATE: 08/08/16 DICTATED BY: HAJA LOPEZ DATE: 08/07/16 REPORT STATUS : Draft TRANSCRIBED BY: WILL DATE: 08/07/16 Pretty Younger M.D.
--- NOTE | ~2016-08-07 | DS ---
Discharge Summary [place] [address] [place]. [address] NAME: POONAM AGRAWAL : 78 STATUS : DIS IN PAT#: [id number] AGE: 35 ADM/REG DATE : 08/08/16 MR#: [id number] REPORT SERV DATE: 08/11/16 DICTATED BY: STEFANO BREWER DATE: 08/10/16 REPORT STATUS : Draft TRANSCRIBED BY: MODL DATE: 08/10/16 ADMISSION DATE: 08/08/2016 DISCHARGE DATE: 08/10/2016 REASON FOR ADMISSION: Watery stools with fever, with previous diagnosis of C diff having just completed a two week course of oral vancomycin. DISCHARGE DIAGNOSES: 1. Clostridium difficile. 2. Diabetes type 2. 3. History of chronic urinary tract infections. 4. Fevers, secondary to Clostridium difficile. 5. Rheumatoid arthritis and lupus. 6. Factor 5 Leiden, clotting disorder, with history of deep venous thrombosis and pulmonary embolism. 7. Gastroparesis, secondary to diabetes and chronic pain medication. HOSPITAL COURSE: Please see admission H and P from Luh Florence M.D. on 08/08/2016 for full details on hospital admission: 1. C diff, as previously mentioned, the patient had recently finished a two week course of oral vancomycin for her C diff and she came in with fever and persistent diarrhea. Here at the hospital, we have restarted her on oral vancomycin and she was seen by Infectious Disease, Dr. Wade, part of her complication is that she has had chronic UTIs and received many rounds of antibiotics for that which has made her more prone for C. diff. Since we have restarted her on the oral vancomycin her diarrhea has much improved, only two loose stools in last 24 hours. She will need a prolonged course for approximately five more weeks. 2. History of chronic UTIs, the patient did have many bacteria on her urinalysis without pyuria, and culture would grow out ESBL E coli which she is colonized with, did not believe her to have any acute UTI, and so we have not treated and Dr. Wade agreed with this action from Infectious Disease. She is not had any elevated white blood cell count. No symptoms with urination and the fevers have ceased since we started her on the oral vancomycin for the C diff. 3. Factor 5 Leiden, clotting disorder, with a history of DVTs, and PE. The patient takes Coumadin at home with her frequent issues with her gastroparesis and now C diff. She has had difficulty taking her Coumadin consistently, came into the hospital with INR 1.0, currently it is only 1.2. We have been bridging her with Lovenox 90 mg subcu b.i.d., and we will actually continue this at discharge. She has a history of multiple DVTs and PE. I recommend that she seek followup with specialist, although, she is followed by Hematology/Oncology, George. 4. Gastroparesis, the patient was placed on Marinol while here at the hospital and has had some relief with that. Her gastroparesis is likely due to both her diabetes and her chronic pain, secondary to her lupus. DISCHARGE CONDITION: Stable. Discharge Summary [address] [address] NAME: POONAM AGRAWAL : 78 STATUS : DIS IN PAT#: [id number] AGE: 35 ADM/REG DATE : 08/08/16 MR#: [id number] REPORT SERV DATE: 08/11/16 DICTATED BY: STEFANO BREWER DATE: 08/10/16 REPORT STATUS : Draft TRANSCRIBED BY: WILL DATE: 08/10/16 DISCHARGE MEDICATIONS: 1. Amlodipine 5 mg p.o. b.i.d. 2. Klonopin 1 mg p.o. b.i.d. 3. Combivent p.r.n. 4. Humalog sliding scale. 5. Levemir 32 units subcu daily. 6. Lyrica 150 mg p.o. b.i.d. 7. Metoprolol 100 mg p.o. b.i.d. 8. Nystatin p.r.n. 9. Prednisone 20 mg p.o. daily. 10.Albuterol p.r.n. 11.Os-Jj D 500 p.o. daily. 12.Slow FE one tablet b.i.d. 13.Carafate 1 g p.o. a.c., at bedtime. 14.Marinol 2.5 mg p.o. b.i.d. 15.Lovenox 90 mg subcu q.12 hours until INR greater than or equal to 2. 16.Florastor 250 mg p.o. b.i.d. 17.Reglan 5 mg p.o. a.c., at bedtime. 18.Vancomycin 125 mg p.o. q.6 hours through 08/18/2016, and then 125 mg p.o. q.8 hours x7 days, then 150 mg q.12 hours x7 days, then 125 mg p.o. daily x7 days, then 125 mg p.o. every other day x7 days, then discontinue. 19.Hydrocodone 7.5/325 one to two tabs q.4 hours p.r.n. DISCHARGE PLAN: The patient is discharged home. Follow up with primary care next week who is Eip Almanza M.D. She will continue her long-term course of oral vancomycin. TDR/MODL Stefano Brewer APN / [id number] CC: Pretty Barnett M.D. Hal Hill, M.D.
[2016-08-07 13:50] LABS: BASOPHILS ABSOLUTE 0.06 10/3/uL (0.0-0.16); EOSINOPHILS 2.5 %; EOSINOPHILS ABSOLUTE 0.15 10/3/uL (0.0-0.53); HEMATOCRIT 37.1 % (36.0-48.0); HEMOGLOBIN 11.3 g/dL (12.0-16.0); IMMATURE GRANULOCYTES 3.2 %; IMMATURE GRANULOCYTES ABSOLUTE 0.19 10/3/uL (0.0-0.11); LYMPHOCYTES 20.7 %; LYMPHOCYTES ABSOLUTE 1.23 10/3/uL (0.67-4.30); MEAN CORPUS HGB CONC 30.5 g/dL (32.0-36.0); MEAN CORPUSCULAR HEMOGLOB 24.9 pg (26.0-34.0); MEAN CORPUSCULAR VOLUME 81.7 fL (80-100); MEAN PLATELET VOLUME 9.3 fL (9.2-13.0); MONOCYTES 15.3 %; MONOCYTES ABSOLUTE 0.91 10/3/uL (0.21-1.20); NEUTROPHILS 57.3 %; PLATELET COUNT 361 10/3/uL (150-400); RED CELL COUNT 4.54 10/6/uL (4.0-5.6); WHITE BLOOD CELLS 5.9 10/3/uL (4.5-10.5)
[2016-08-07 13:52] LABS: MANUAL DIFF NO %
[2016-08-07 14:12] LABS: ASCORBIC ACID (UR NOT ORDER) NEG (NEG); BILIRUBIN, URINE NEGATIVE (NEG); ER URINALYSIS TAT 0 Hrs 15 Mins; KETONE, URINE TRACE MG/DL (NEG); LEUKOCYTE ESTERASE(NOT OR SMALL (NEG); NITRITE (URINE) NEG (NEG); WBC (NOT ORDERED) (RFLEX) 108 (0-5)
[2016-08-07 17:12] LABS: ASCORBIC ACID (UR NOT ORDER) NEG (NEG); BILIRUBIN, URINE NEGATIVE (NEG); ER URINALYSIS TAT 0 Hrs 16 Mins; KETONE, URINE NEGATIVE (NEG); LEUKOCYTE ESTERASE(NOT OR TRACE (NEG); WBC (NOT ORDERED) (RFLEX) 4 (0-5)
[2016-08-07 17:13] LABS: NITRITE (URINE) POS (NEG)
[2016-08-07 19:06] LABS: A/G RATIO 0.9 (0.7-1.9); ALBUMIN 3.1 G/DL (3.5-5.0); ALKALINE PHOSPHATASE 119 U/L (45-117); BUN (BLOOD UREA NITROGEN) 4 MG/DL (6-23); CALCIUM, SERUM 8.2 MG/DL (8.5-10.4); CHLORIDE, SERUM 110 MMOL/L (96-112); CREATININE 0.72 MG/DL (0.55-1.02); GFR AFRICAN AMERICAN 125 ML/MIN (>=60); GFR NON AFRICAN AMERICAN 108 ML/MIN (>=60); GLOBULIN 3.3 G/DL (2.5-4.1); POTASSIUM, SERUM 3.6 MMOL/L (3.5-5.3); SGOT(AST) 39 U/L (5-40); SGPT(ALT) 65 U/L (5-65); SODIUM, SERUM 144 MMOL/L (135-148); TOTAL BILIRUBIN 0.3 MG/DL (0-1.2); TOTAL PROTEIN 6.4 G/DL (6.0-8.5)
[2016-08-07 19:09] LABS: CO2 (CARBON DIOXIDE) 23 MMOL/L (24-34); GLUCOSE, SERUM 101 MG/DL (60-99)
[2016-08-07] MEDS ORDERED: NORV5 PO (20:06)
[2016-08-07] MEDS ORDERED: KLONO1 PO (20:07)
[2016-08-07] MEDS ORDERED: COMBIVENT RESPIM4 GM INH (20:08)
[2016-08-07] MEDS ORDERED: HUMALOG SC (20:08)
[2016-08-07] MEDS ORDERED: DIL4TAB PO (20:10)
[2016-08-07] MEDS ORDERED: LEVEMFLXPN SC (20:11)
[2016-08-07] MEDS ORDERED: LYRICA150 MG PO (20:11)
[2016-08-07] MEDS ORDERED: LOP100 PO (20:13)
[2016-08-07] MEDS ORDERED: COUMADIN3 MG PO (20:14)
[2016-08-07] MEDS ORDERED: NYS500UDL PO (20:14)
[2016-08-07] MEDS ORDERED: P20 PO (20:15)
[2016-08-07] MEDS ORDERED: ULTRAM50 PO (20:15)
[2016-08-07] MEDS ORDERED: PROAIR HFA INH (20:16)
[2016-08-07] MEDS ORDERED: OS500+D PO (20:17)
[2016-08-07] MEDS ORDERED: BEN25 PO (20:17)
[2016-08-07] MEDS ORDERED: APRES25 PO (20:18)
[2016-08-07] MEDS ORDERED: SLO-FE PO (20:18)
[2016-08-07] MEDS ORDERED: PR25 PO (20:19)
[2016-08-07] MEDS ORDERED: PROTONIX PO (20:19)
[2016-08-07] MEDS ORDERED: SUCR PO (20:20)
[2016-08-07] MEDS ORDERED: MOTRIN PM PO (20:21)
[2016-08-07] MEDS ORDERED: VANCOMYCIN 125 MG/5 ML PO (20:28)
[2016-08-08 02:03] LABS: INFLUENZA A SCREEN NEGATIVE (NEGATIVE); INFLUENZA B SCREEN NEGATIVE (NEGATIVE)
[2016-08-08 11:08] LABS: HEMATOCRIT 40.6 % (36.0-48.0); HEMOGLOBIN 11.7 g/dL (12.0-16.0); MEAN CORPUS HGB CONC 28.8 g/dL (32.0-36.0); MEAN CORPUSCULAR HEMOGLOB 24.8 pg (26.0-34.0); MEAN PLATELET VOLUME 9.5 fL (9.2-13.0); PLATELET COUNT 401 10/3/uL (150-400); RBC DISTRIBUTION WIDTH 22.3 % (12.0-16.0); RED CELL COUNT 4.72 10/6/uL (4.0-5.6); WHITE BLOOD CELLS 9.9 10/3/uL (4.5-10.5)
[2016-08-08 11:09] LABS: MANUAL DIFF YES %
[2016-08-08 11:14] LABS: PARTIAL THROMBO TIME 24.3 SEC (22.5-37.2); PROTIME (NOT ORD) 13.3 SEC (12.0-14.5)
[2016-08-08 11:18] LABS: BUN (BLOOD UREA NITROGEN) 4 MG/DL (6-23); CALCIUM, SERUM 8.3 MG/DL (8.5-10.4); CHLORIDE, SERUM 108 MMOL/L (96-112); CO2 (CARBON DIOXIDE) 22 MMOL/L (24-34); CREATININE 0.98 MG/DL (0.55-1.02); GFR AFRICAN AMERICAN 86 ML/MIN (>=60); GFR NON AFRICAN AMERICAN 74 ML/MIN (>=60); POTASSIUM, SERUM 4.1 MMOL/L (3.5-5.3); SODIUM, SERUM 141 MMOL/L (135-148)
[2016-08-08 11:21] LABS: GLUCOSE, SERUM 147 MG/DL (60-99); PHOSPHORUS, SERUM 3.9 MG/DL (2.5-4.5)
[2016-08-08 11:35] LABS: EOSINOPHILS 1 %; LYMPHOCYTES 16 %; LYMPHOCYTES ABSOLUTE (CALC) 1.58 10/3/uL (0.67-4.30); MONOCYTES 19 %; MONOCYTES ABSOLUTE (CALC) 1.88 10/3/uL (0.21-1.20); NEUTROPHILS ABSOLUTE (CALC) 6.34 10/3/uL (2.02-8.40); PLATELET ESTIMATE SLT INC (ADEQUATE); SEGMENTED NEUTROPHIL (0) 64 %; TOTAL NUCLEATED CELLS 100
[2016-08-08 11:36] LABS: HYPOCHROMIA 1+ (3-10/OIF) (0-2/OIF); OVALOCYTES 1+ (3-10/OIF) (0-2/OIF)
[2016-08-08 11:37] LABS: POLYCHROMASIA 1+ (2-5/OIF) (0-1/OIF)
[2016-08-09 06:33] LABS: INTERNATIONAL NORMAL RATI 1.1 UNITS (-); PROTIME (NOT ORD) 14.1 SEC (12.0-14.5)
[2016-08-10 08:40] LABS: INTERNATIONAL NORMAL RATI 1.2 UNITS (-); PROTIME (NOT ORD) 14.8 SEC (12.0-14.5)
[2016-08-10 08:45] LABS: CALCIUM, SERUM 9.1 MG/DL (8.5-10.4); CHLORIDE, SERUM 103 MMOL/L (96-112); CO2 (CARBON DIOXIDE) 19 MMOL/L (24-34); CREATININE 0.95 MG/DL (0.55-1.02); GFR AFRICAN AMERICAN 89 ML/MIN (>=60); GFR NON AFRICAN AMERICAN 77 ML/MIN (>=60); GLUCOSE, SERUM 131 MG/DL (60-99); POTASSIUM, SERUM 4.7 MMOL/L (3.5-5.3); SODIUM, SERUM 136 MMOL/L (135-148)
[2016-08-10 08:47] LABS: BUN (BLOOD UREA NITROGEN) 9 MG/DL (6-23)
[2016-08-10 10:28] LABS: BASOPHILS 0.3 %; BASOPHILS ABSOLUTE 0.04 10/3/uL (0.0-0.16); EOSINOPHILS 0.9 %; HEMATOCRIT 38.3 % (36.0-48.0); HEMOGLOBIN 11.4 g/dL (12.0-16.0); IMMATURE GRANULOCYTES 2.6 %; IMMATURE GRANULOCYTES ABSOLUTE 0.31 10/3/uL (0.0-0.11); LYMPHOCYTES 17.9 %; LYMPHOCYTES ABSOLUTE 2.11 10/3/uL (0.67-4.30); MEAN CORPUS HGB CONC 29.8 g/dL (32.0-36.0); MEAN CORPUSCULAR HEMOGLOB 24.7 pg (26.0-34.0); MEAN PLATELET VOLUME 9.3 fL (9.2-13.0); MONOCYTES 14.9 %; MONOCYTES ABSOLUTE 1.75 10/3/uL (0.21-1.20); NEUTROPHILS 63.4 %; NEUTROPHILS ABSOLUTE 7.45 10/3/uL (2.02-8.40); PLATELET COUNT 380 10/3/uL (150-400); RBC DISTRIBUTION WIDTH 21.4 % (12.0-16.0); RED CELL COUNT 4.62 10/6/uL (4.0-5.6); WHITE BLOOD CELLS 11.8 10/3/uL (4.5-10.5)
[2016-08-10 10:29] LABS: MANUAL DIFF NO %; MEAN CORPUSCULAR VOLUME 82.9 fL (80-100)
[2016-08-10] MEDS ORDERED: MARI2.5 PO (12:28)
[2016-08-10] MEDS ORDERED: LOVENOX1C SC (12:32)
[2016-08-10] MEDS ORDERED: FLORASTOR250 MG PO (12:35)
[2016-08-10] MEDS ORDERED: REG5 PO (12:36)
[2016-08-10] MEDS ORDERED: VANCOCIN HCL125 MG PO/LIQ (12:40)
[2016-08-10] MEDS ORDERED: C5 PO (12:42)
[2016-08-10] MEDS ORDERED: NORCO1 TA2 PO (12:48)
[2016-11-21] MEDS ORDERED: LYRICA150 MG PO (23:28)
[2016-11-21] MEDS ORDERED: ULTRAM50 PO (23:28)
[2016-11-21] MEDS ORDERED: C5 PO (23:29)
[2016-11-21] MEDS ORDERED: HUMALOG SC (23:32)
[2016-11-21] MEDS ORDERED: KLONO1 PO (23:33)
[2016-11-21] MEDS ORDERED: MEDROL8 MG PO (23:33)
[2016-11-21] MEDS ORDERED: LOP100 PO (23:34)
[2016-11-21] MEDS ORDERED: PROVHFA INH (23:34)
[2016-11-21] MEDS ORDERED: OS500+D PO (23:36)
[2016-11-21] MEDS ORDERED: SUCR PO (23:37)
[2016-11-21] MEDS ORDERED: FERROUS SULFATE PO (23:38)
[2016-11-21] MEDS ORDERED: COMBIVENT RESPIM4 GM INH (23:38)
[2016-11-21] MEDS ORDERED: ACET500CAP PO (23:39)
[2016-11-21] MEDS ORDERED: PR25 PO (23:41)
[2016-11-21] MEDS ORDERED: DIL2TAB PO (23:42)
== END 2016-08-10 19:52 | disposition home or self-care (01) | DRG 372 ==
LOC: ER 13:13 → 7NO 08-08 00:16
PROVIDERS: Emergency Medicine; Hospitalist; Internal Medicine; Nurse Practitioner Family
DX: A04.7 Enterocolitis due to Clostridium difficile (principal); D68.51 Activated protein C resistance; M32.9 Systemic lupus erythematosus, unspecified; E11.43 Type 2 diabetes mellitus with diabetic autonomic (poly)neuropathy; K31.84 Gastroparesis; E11.9 Type 2 diabetes mellitus without complications; M06.9 Rheumatoid arthritis, unspecified; G89.29 Other chronic pain; Z22.39 Carrier of other specified bacterial diseases; Z87.440 Personal history of urinary (tract) infections
CPT/HCPCS: 74176; 80048; 80053; 81001; 82962; 83605; 83690; 83735; 84100; 85025; 85610; 85730; 87040; 87077; 87086; 87186; 87493; 87493-59; 87804; 94640; 96374; 99285; A9270-GY; J2405

== ENCOUNTER 2016-10-08 13:00 | Emergency (ER) | payer BC ==
[~2016-10-08 13:00] MED LIST changes: +C5 PO; +FLORASTOR250 MG PO; +HUMALOG SC; +LOVENOX1C SC; +MARI2.5 PO; +MOTRIN PM PO; +NORCO1 TA2 PO; +SLO-FE PO; +VANCOMYCIN 125 MG/5 ML PO
[2016-10-08 14:10] LABS: ASCORBIC ACID (UR NOT ORDER) NEG (NEG); BILIRUBIN, URINE NEGATIVE (NEG); ER URINALYSIS TAT 0 Hrs 00 Mins; KETONE, URINE NEGATIVE (NEG); LEUKOCYTE ESTERASE(NOT OR MOD (NEG); NITRITE (URINE) POS (NEG); WBC (NOT ORDERED) (RFLEX) 8 (0-5)
[2016-10-08 14:14] LABS: BASOPHILS 0.3 %; BASOPHILS ABSOLUTE 0.02 10/3/uL (0.0-0.16); EOSINOPHILS ABSOLUTE 0.08 10/3/uL (0.0-0.53); IMMATURE GRANULOCYTES 1.9 %; IMMATURE GRANULOCYTES ABSOLUTE 0.15 10/3/uL (0.0-0.11); LYMPHOCYTES ABSOLUTE 2.04 10/3/uL (0.67-4.30); MEAN PLATELET VOLUME 9.4 fL (9.2-13.0); MONOCYTES 11.2 %; MONOCYTES ABSOLUTE 0.88 10/3/uL (0.21-1.20); NEUTROPHILS 59.6 %; NEUTROPHILS ABSOLUTE 4.67 10/3/uL (2.02-8.40); PLATELET COUNT 321 10/3/uL (150-400); RED CELL COUNT 5.29 10/6/uL (4.0-5.6); WHITE BLOOD CELLS 7.8 10/3/uL (4.5-10.5)
[2016-10-08 14:15] LABS: HEMATOCRIT 45.8 % (36.0-48.0); HEMOGLOBIN 14.4 g/dL (12.0-16.0); MANUAL DIFF NO %; MEAN CORPUS HGB CONC 31.4 g/dL (32.0-36.0); MEAN CORPUSCULAR HEMOGLOB 27.2 pg (26.0-34.0); MEAN CORPUSCULAR VOLUME 86.6 fL (80-100); RBC DISTRIBUTION WIDTH 14.6 % (12.0-16.0)
[2016-10-08 14:27] LABS: BUN (BLOOD UREA NITROGEN) 10 MG/DL (6-23); CALCIUM, SERUM 9.1 MG/DL (8.5-10.4); CHLORIDE, SERUM 103 MMOL/L (96-112); CREATININE 0.91 MG/DL (0.55-1.02); GFR AFRICAN AMERICAN 94 ML/MIN (>=60); GFR NON AFRICAN AMERICAN 81 ML/MIN (>=60); SODIUM, SERUM 138 MMOL/L (135-148)
[2016-10-08 14:28] LABS: CO2 (CARBON DIOXIDE) 26 MMOL/L (24-34); GLUCOSE, SERUM 70 MG/DL (60-99); POTASSIUM, SERUM 3.8 MMOL/L (3.5-5.3)
[2016-11-21] MEDS ORDERED: ULTRAM50 PO (23:28)
[2016-11-21] MEDS ORDERED: LYRICA150 MG PO (23:28)
[2016-11-21] MEDS ORDERED: C5 PO (23:29)
[2016-11-21] MEDS ORDERED: HUMALOG SC (23:32)
[2016-11-21] MEDS ORDERED: KLONO1 PO (23:33)
[2016-11-21] MEDS ORDERED: MEDROL8 MG PO (23:33)
[2016-11-21] MEDS ORDERED: LOP100 PO (23:34)
[2016-11-21] MEDS ORDERED: PROVHFA INH (23:34)
[2016-11-21] MEDS ORDERED: OS500+D PO (23:36)
[2016-11-21] MEDS ORDERED: SUCR PO (23:37)
[2016-11-21] MEDS ORDERED: FERROUS SULFATE PO (23:38)
[2016-11-21] MEDS ORDERED: COMBIVENT RESPIM4 GM INH (23:38)
[2016-11-21] MEDS ORDERED: ACET500CAP PO (23:39)
[2016-11-21] MEDS ORDERED: PR25 PO (23:41)
[2016-11-21] MEDS ORDERED: DIL2TAB PO (23:42)
== END 2016-10-08 15:54 | disposition home or self-care (01) ==
LOC: ER 13:00
PROVIDERS: Physician Assistant
DX: N12 Tubulo-interstitial nephritis, not specified as acute or chronic (principal); E11.9 Type 2 diabetes mellitus without complications; Z88.8 Allergy status to other drugs, medicaments and biological substances; Z79.4 Long term (current) use of insulin; Z79.52 Long term (current) use of systemic steroids; Z79.899 Other long term (current) drug therapy; Z79.891 Long term (current) use of opiate analgesic; Z79.01 Long term (current) use of anticoagulants
CPT/HCPCS: 80048; 81001; 84703; 85025; 87077; 87086; 87186; 96372; 99284; A9270-GY; J1170

== ENCOUNTER 2016-10-17 10:45 | Inpatient (IN) | payer BC ==
--- NOTE | ~2016-10-17 | HP ---
History And Physical [place] [id number] [facility] [place]. [address] NAME: POONAM AGRAWAL : 78 STATUS : ADM Juany PAT#: [id number] AGE: 36 ADM/REG DATE : 10/17/16 MR#: [id number] REPORT SERV DATE: 10/18/16 DICTATED BY: ABELARDO SANCHEZ DATE: 10/17/16 REPORT STATUS : Draft TRANSCRIBED BY: MODKurtis DATE: 10/17/16 DATE OF ADMISSION: 10/17/2016 CHIEF COMPLAINT: A 36-year-old female presenting with a syncopal episode. HISTORY OF PRESENTING ILLNESS: The patient's history was obtained through careful interview with the patient, coupled with review of [facility] medical records. The patient states that she was in usual state of health when just on the morning of admission, she developed a sore throat and a feeling as if her eyes and mouth were swollen. She had blurry vision. When she tried to get up this morning to use the bathroom, she had orthostatic symptoms, began to stumble. She called out to her daughter, but went to lay back in her bed before going to the bathroom. As the patient was lying in the bed, she felt short of breath. So, she tried to get up to get her nasal cannula oxygen which was beside her bed. She took about two steps and felt lightheaded again, and completely passed out. Her daughter had arrived about this time and helped her slump to the ground apparently. She had complete loss of consciousness for about 15 minutes before the EMS crew arrived. They checked her blood sugar and it was 80 and apparently, she had stable normal vital signs other than tachycardia. The patient has had shortness of breath today, but no cough. She describes right lower chest and back discomfort, a sharp quality, 8/10 severity, exacerbated by deep breathing. She also describes a new-onset headache diffusely described as "terrible" severity. She has had chronic neuropathy pain. She also believes her rheumatoid arthritis and/or lupus is active in her feet and her ankles with swelling and discomfort. She also describes urine spasms with urinary frequency and dysuria. No diarrhea. Subjective fevers and chills today. She had one episode of vomiting today and suffers from nausea almost every day. REVIEW OF SYSTEMS: Otherwise, a 14-point review of systems was obtained and was negative. PAST MEDICAL HISTORY: 1. Lupus, seen by Dr. Faulkner, on chronic prednisone, previously on Arava. 2. Factor V Leiden with history of DVT and pulmonary embolism, on Arixtra for many years, but recently switched over to Coumadin, followed by Dr. Bess. 3. TTP in 01/2016. 4. Clostridium difficile colitis. 5. Diabetes. 6. Rheumatoid arthritis since 2003. History And Physical [address] [address] NAME: POONAM AGRAWAL : 78 STATUS : ADM Juany PAT#: [id number] AGE: 36 ADM/REG DATE : 10/17/16 MR#: [id number] REPORT SERV DATE: 10/18/16 DICTATED BY: ABELARDO SANCHEZ DATE: 10/17/16 REPORT STATUS : Draft TRANSCRIBED BY: WILL DATE: 10/17/16 7. Gastroparesis. 8. Interstitial cystitis with recurrent urinary tract infections including extended- spectrum beta-lactamase Escherichia coli. 9. Nephrolithiasis with history of stent placement, seen by Dr. Aiken. 10.Anemia with history of blood transfusions. 11.Gastritis, seen by Dr. Noe. 12.Lupus pneumonitis, seen by Dr. Duran. 13.Bacteremia with sepsis from central line placement with Enterococcus coag-negative staph and Acinetobacter. 14.Chronic steroid-induced cushingoid syndrome with also loss of teeth secondary to steroids, seen by Dr. Oleary. 15.Pulmonary hypertension. 16.Neuropathy. 17.Hypertension. PAST SURGICAL HISTORY: 1. Cholecystectomy. 2. Hysterectomy. 3. . 4. Tubal ligation. 5. Right shoulder surgery. 6. Kidney biopsy. ALLERGIES: COMPAZINE. SOCIAL HISTORY: No tobacco abuse. No alcohol abuse. Is single. Has a boyfriend. Is , disabled. Has four children ages 13, 15, 18, and 20. Her two oldest children are both in college, one at [employer] and one at [employer]. 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 FAMILY HISTORY: Mother with lupus, rheumatoid arthritis, and heart disease. Father with chronic kidney disease. A strong family history of diabetes and cancer. CURRENT MEDICATIONS: Include albuterol inhaler, calcium with vitamin D, Klonopin 1 mg p.o. b.i.d., hydralazine p.r.n., Dilaudid 2 mg p.o. t.i.d. as needed, Levemir 34 units subcutaneous daily, sliding scale insulin, Combivent, methylprednisolone 16 mg p.o. daily, Lopressor 100 mg p.o. b.i.d., nystatin swish and swallow, Lyrica 150 mg p.o. b.i.d., Florastor 250 mg p.o. b.i.d., sucralfate 1 g before meals and at bedtime, tramadol 100 mg p.o. b.i.d., slow iron, Coumadin 5 mg p.o. daily. PHYSICAL EXAMINATION: VITAL SIGNS: Temperature 99.4, pulse 118, blood pressure 159/98, respiratory rate 19, O2 saturation 94% on 2 L nasal cannula. GENERAL: A chronically ill-appearing female, in no evidence of acute distress at this time. HEENT: Pupils equal, round, and reactive to light. No conjunctival pallor. No scleral icterus. Nares are patent. Oropharynx is clear of obstruction. Moist mucous membranes. History And Physical [address] [address] NAME: POONAM AGRAWAL : 78 STATUS : ADM Juany PAT#: [id number] AGE: 36 ADM/REG DATE : 10/17/16 MR#: [id number] REPORT SERV DATE: 10/18/16 DICTATED BY: ABELARDO SANCHEZ DATE: 10/17/16 REPORT STATUS : Draft TRANSCRIBED BY: WILL DATE: 10/17/16 No intraoral lesions. The patient has poor dental health. No tonsillar exudates. No pharyngeal erythema. NECK: Trachea midline. No thyromegaly. LYMPH: No cervical lymphadenopathy. No supraclavicular lymphadenopathy. RESPIRATORY: Clear to auscultation at bases. No wheezes, rales, or rhonchi. Normal respiratory effort. CARDIOVASCULAR: Tachycardic, regular rhythm. No murmurs, rubs, or gallops. No extremity edema is appreciated. ABDOMEN: Soft, nontender, nondistended. Normal bowel sounds auscultated throughout. No hepatosplenomegaly. DERMATOLOGICAL: Warm and dry extremities. No pallor, no cyanosis. PSYCHIATRIC: An anxious affect and mood. Alert and oriented x3. LABORATORY DATA: White blood cell count 8.9, hemoglobin 13, hematocrit 41, platelets 282. Sodium 137, potassium 3.4, chloride 106, bicarb 27, BUN 9, creatinine 0.84, glucose 91. INR 1.1. PTT greater than 150. Lactic acid 1.6. Liver enzymes within normal limits. Urinalysis shows many epithelial cells, 20 white blood cells, trace leukocyte esterase, and positive nitrites. ABG demonstrates pH 7.41, a PaCO2 of 38, a PaO2 of 128, and bicarb 23. STUDIES: 1. EKG by my own evaluation shows sinus tachycardia, right bundle-branch block. 2. CT angiogram of the chest shows no evidence of pulmonary embolism or pulmonary infiltrate or other abnormalities of significance. ASSESSMENT AND PLAN: 1. Syncope. Check orthostatics. Place on IV fluids. 2. Lupus flare, is presumptive diagnosis at this time. Continue chronic steroids. Check ESR, CRP. Check complement levels C3 and C4. 3. History of pulmonary embolism, but with a subtherapeutic INR of 1.1 despite being on Coumadin, but an elevated PTT of greater than 150. Would like to consult Dr. 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 Consider switching back to Arixtra? 4. Rheumatoid arthritis. Check ESR and CRP. 5. Sore throat. Check strep. 6. Gastroparesis. P.r.n. Reglan IV. KPL/MODL Abelardo Sanchez M.D. / [id number] CC: Pretty Barnett M.D.
--- NOTE | ~2016-10-17 | DS ---
Discharge Summary [place] [address] [place]. [address] NAME: POONAM AGRAWAL : 78 STATUS : DIS Juany PAT#: [id number] AGE: 36 ADM/REG DATE : 10/17/16 MR#: [id number] REPORT SERV DATE: 10/20/16 DICTATED BY: DIANN CAMERON DATE: 10/19/16 REPORT STATUS : Draft TRANSCRIBED BY: MODL DATE: 10/19/16 ADMISSION DATE: 10/17/2016 DISCHARGE DATE: 10/19/2016 PRINCIPAL DIAGNOSIS: Syncope due to accidental drug intoxication. SECONDARY DIAGNOSES: Lupus, history of pulmonary embolism on anticoagulants, history of gastroparesis, history of chronic pain. HISTORY OF PRESENT ILLNESS: Please see Dr. Mesa's dictation on 10/17/2016. HOSPITAL COURSE: Admitted with altered mental status which had responded to Narcan therapy. The patient denied intentional overuse of her medicines. She still had a mildly clouded sensorium and a slightly ataxic gait the following morning, but CT was negative. No further evidence of a problem occurred. She was actually offered to go home, she did not have a ride on the evening of 10/18/2016, did not leave until the morning of 10/19/2016 and she was released in satisfactory condition, continuing her medications, and following up with Epi Almanza in one to two weeks. DICTATED BY: Pretty Barnett/WILL Diann Cameron M.D. / [id number] CC: Pretty Barnett M.D.
[2016-10-17 11:59] LABS: ASCORBIC ACID (UR NOT ORDER) NEG (NEG); BILIRUBIN, URINE NEGATIVE (NEG); ER URINALYSIS TAT 0 Hrs 16 Mins; KETONE, URINE NEGATIVE (NEG); LEUKOCYTE ESTERASE(NOT OR TRACE (NEG); NITRITE (URINE) POS (NEG); WBC (NOT ORDERED) (RFLEX) 20 (0-5)
[2016-10-17 15:18] LABS: BE (BASE EXCESS) -0.7 MEQ/L (0 +/- 2.5); CARBOXYHEMOGLOBIN 2.2 % (0-3); DEVICE NC; HCO3 (ACTUAL BICARBONATE) 23.5 MEQ/L (23-27); INSTRUMENT SERIAL # 8087; METHEMOGLOBIN 0.3 % (0-3); O2 CONTENT 19.1 VOL% (18-24); PCO2 (CO2 TENSION) 38 MMHG (35-45); PO2 (O2 TENSION) 128 MMHG (79-93); SAMPLE Arterial; pH 7.41 (7.37-7.43)
[2016-10-17 15:30] LABS: BASOPHILS 0.3 %; BASOPHILS ABSOLUTE 0.03 10/3/uL (0.0-0.16); EOSINOPHILS 1.7 %; EOSINOPHILS ABSOLUTE 0.15 10/3/uL (0.0-0.53); ER CBC TAT 0 Hrs 10 Mins; HEMATOCRIT 41.4 % (36.0-48.0); IMMATURE GRANULOCYTES 4.6 %; IMMATURE GRANULOCYTES ABSOLUTE 0.41 10/3/uL (0.0-0.11); LYMPHOCYTES 24.8 %; LYMPHOCYTES ABSOLUTE 2.21 10/3/uL (0.67-4.30); MEAN CORPUS HGB CONC 31.4 g/dL (32.0-36.0); MEAN CORPUSCULAR HEMOGLOB 27.5 pg (26.0-34.0); MEAN CORPUSCULAR VOLUME 87.5 fL (80-100); MEAN PLATELET VOLUME 9.3 fL (9.2-13.0); MONOCYTES 10.7 %; MONOCYTES ABSOLUTE 0.95 10/3/uL (0.21-1.20); NEUTROPHILS 57.9 %; NEUTROPHILS ABSOLUTE 5.16 10/3/uL (2.02-8.40); PLATELET COUNT 282 10/3/uL (150-400); RBC DISTRIBUTION WIDTH 14.5 % (12.0-16.0); RED CELL COUNT 4.73 10/6/uL (4.0-5.6); WHITE BLOOD CELLS 8.9 10/3/uL (4.5-10.5)
[2016-10-17 15:33] LABS: MANUAL DIFF NO %
[2016-10-17 15:39] LABS: INTERNATIONAL NORMAL RATI 1.1 UNITS (-); PROTIME (NOT ORD) 13.9 SEC (12.0-14.5)
[2016-10-17 15:43] LABS: PARTIAL THROMBO TIME > 150.0 SEC (22.5-37.2)
[2016-10-17 15:48] LABS: ALBUMIN 3.1 G/DL (3.5-5.0); ALKALINE PHOSPHATASE 76 U/L (45-117); BUN (BLOOD UREA NITROGEN) 9 MG/DL (6-23); CHLORIDE, SERUM 106 MMOL/L (96-112); CO2 (CARBON DIOXIDE) 27 MMOL/L (24-34); CREATININE 0.84 MG/DL (0.55-1.02); GFR AFRICAN AMERICAN 103 ML/MIN (>=60); GFR NON AFRICAN AMERICAN 89 ML/MIN (>=60); GLOBULIN 3.2 G/DL (2.5-4.1); GLUCOSE, SERUM 91 MG/DL (60-99); POTASSIUM, SERUM 3.4 MMOL/L (3.5-5.3); SGOT(AST) 15 U/L (5-40); SGPT(ALT) 20 U/L (5-65); SODIUM, SERUM 137 MMOL/L (135-148); TOTAL BILIRUBIN 0.2 MG/DL (0-1.2); TOTAL PROTEIN 6.3 G/DL (6.0-8.5); TROPONIN I <0.02 NG/ML (<0.05)
[2016-10-17 15:55] LABS: BASOPHILS 1 %; BASOPHILS ABSOLUTE (CALC) 0.09 10/3/uL (0.0-0.16); EOSINOPHILS 1 %; EOSINOPHILS ABSOLUTE (CALC) 0.09 10/3/uL (0.0-0.53); ER DIFF TAT 0 Hrs 35 Mins; LYMPHOCYTES 36 %; MONOCYTES 11 %; MONOCYTES ABSOLUTE (CALC) 0.98 10/3/uL (0.21-1.20); NEUTROPHILS ABSOLUTE (CALC) 4.54 10/3/uL (2.02-8.40); SEGMENTED NEUTROPHIL (0) 51 %; TOTAL NUCLEATED CELLS 100
[2016-10-17 15:56] LABS: PLATELET ESTIMATE ADQ (ADEQUATE)
[2016-10-17 15:57] LABS: GIANT PLATELET RARE
[2016-10-17 15:58] LABS: POLYCHROMASIA 1+ (2-5/OIF) (0-1/OIF); TEARDROP SHAPED RBCS FEW (3-10/OIF)
[2016-10-17] MEDS ORDERED: OS500+D PO (18:44)
[2016-10-17] MEDS ORDERED: KLONO1 PO (18:44)
[2016-10-17] MEDS ORDERED: FLORASTOR250 MG PO (18:45)
[2016-10-17] MEDS ORDERED: COMBIVENT RESPIM4 GM INH (18:45)
[2016-10-17] MEDS ORDERED: DIL2TAB PO (18:45)
[2016-10-17] MEDS ORDERED: HUMALOG SC (18:46)
[2016-10-17] MEDS ORDERED: APRES25 PO (18:46)
[2016-10-17] MEDS ORDERED: NYS500UDL PO (18:47)
[2016-10-17] MEDS ORDERED: LEVEMIR SC (18:47)
[2016-10-17] MEDS ORDERED: LOP100 PO (18:47)
[2016-10-17] MEDS ORDERED: PROAIR HFA INH (18:48)
[2016-10-17] MEDS ORDERED: LYRICA75 PO (18:48)
[2016-10-17] MEDS ORDERED: SLOW FE IRON PO (18:49)
[2016-10-17] MEDS ORDERED: SUCR PO (18:49)
[2016-10-17] MEDS ORDERED: C5 PO (18:50)
[2016-10-17] MEDS ORDERED: MEDROL4 PO (18:50)
[2016-10-17] MEDS ORDERED: ULTRAM50 PO (18:50)
[2016-10-18 05:07] LABS: ALLENS TEST Pos; BE (BASE EXCESS) -4.2 MEQ/L (0 +/- 2.5); CARBOXYHEMOGLOBIN 1.1 % (0-3); DEVICE NC; HCO3 (ACTUAL BICARBONATE) 23.3 MEQ/L (23-27); HEMOBLOGIN CONTENT 14.4 G/DL (12-16); INSTRUMENT SERIAL # 8087; METHEMOGLOBIN 0.3 % (0-3); O2 CONTENT 19.5 VOL% (18-24); OPERATOR ID 17589; PCO2 (CO2 TENSION) 53 MMHG (35-45); PO2 (O2 TENSION) 99 MMHG (79-93); SAMPLE Arterial; pH 7.27 (7.37-7.43)
[2016-10-18 07:11] LABS: BASOPHILS 0.1 %; BASOPHILS ABSOLUTE 0.01 10/3/uL (0.0-0.16); EOSINOPHILS 0 %; HEMOGLOBIN 14.4 g/dL (12.0-16.0); IMMATURE GRANULOCYTES 2.4 %; IMMATURE GRANULOCYTES ABSOLUTE 0.27 10/3/uL (0.0-0.11); LYMPHOCYTES 9.5 %; LYMPHOCYTES ABSOLUTE 1.08 10/3/uL (0.67-4.30); MEAN CORPUS HGB CONC 31.1 g/dL (32.0-36.0); MEAN CORPUSCULAR HEMOGLOB 27.7 pg (26.0-34.0); MEAN CORPUSCULAR VOLUME 89.2 fL (80-100); MEAN PLATELET VOLUME 9.5 fL (9.2-13.0); MONOCYTES 3.5 %; NEUTROPHILS 84.5 %; NEUTROPHILS ABSOLUTE 9.56 10/3/uL (2.02-8.40); PLATELET COUNT 346 10/3/uL (150-400); RBC DISTRIBUTION WIDTH 14.4 % (12.0-16.0); RED CELL COUNT 5.19 10/6/uL (4.0-5.6); WHITE BLOOD CELLS 11.3 10/3/uL (4.5-10.5)
[2016-10-18 07:12] LABS: HEMATOCRIT 46.3 % (36.0-48.0); MANUAL DIFF NO %
[2016-10-18 07:17] LABS: INTERNATIONAL NORMAL RATI 1.1 UNITS (-); PARTIAL THROMBO TIME 25.6 SEC (22.5-37.2); PROTIME (NOT ORD) 13.9 SEC (12.0-14.5)
[2016-10-18 07:39] LABS: ALBUMIN 3.4 G/DL (3.5-5.0); BUN (BLOOD UREA NITROGEN) 10 MG/DL (6-23); CALCIUM, SERUM 8.9 MG/DL (8.5-10.4); CHLORIDE, SERUM 106 MMOL/L (96-112); CO2 (CARBON DIOXIDE) 28 MMOL/L (24-34); COMPLEMENT C3 185 MG/DL (75-161); COMPLEMENT C4 32.3 MG/DL (16-47); CREATININE 1.03 MG/DL (0.55-1.02); GFR AFRICAN AMERICAN 80 ML/MIN (>=60); GFR NON AFRICAN AMERICAN 69 ML/MIN (>=60); SGPT(ALT) 26 U/L (5-65); SODIUM, SERUM 134 MMOL/L (135-148); TOTAL PROTEIN 7.3 G/DL (6.0-8.5); TROPONIN I <0.02 NG/ML (<0.05)
[2016-10-18 07:40] LABS: A/G RATIO 0.9 (0.7-1.9); ALKALINE PHOSPHATASE 88 U/L (45-117); C-REACTIVE PROTEIN 29.9 MG/L (<8.0); GLOBULIN 3.9 G/DL (2.5-4.1); GLUCOSE, SERUM 138 MG/DL (60-99); POTASSIUM, SERUM 5.1 MMOL/L (3.5-5.3); SGOT(AST) 21 U/L (5-40); TOTAL BILIRUBIN < 0.1 MG/DL (0-1.2); ULTRASENSITIVE TSH 0.184 MCIU/ML (0.358-3.740)
[2016-10-18 08:42] LABS: CARBOXYHEMOGLOBIN 0.4 % (0-3); HCO3 (ACTUAL BICARBONATE) 23.7 MEQ/L (23-27); INSTRUMENT SERIAL # 35151; METHEMOGLOBIN 0.4 % (0-3); O2 CONTENT 18.2 VOL% (18-24); PCO2 (CO2 TENSION) 44 MMHG (35-45); PO2 (O2 TENSION) 67 MMHG (79-93); SAMPLE Arterial; pH 7.35 (7.37-7.43)
[2016-10-18 08:43] LABS: ALLENS TEST Pos
[2016-10-18 09:30] LABS: PROCALCITONIN <0.05 ng/mL (<0.5)
[2016-10-19 06:35] LABS: INTERNATIONAL NORMAL RATI 1.1 UNITS (-); PROTIME (NOT ORD) 14.2 SEC (12.0-14.5)
[2016-10-19] MEDS ORDERED: FESO4 PO (10:07)
[2016-10-19] MEDS ORDERED: MONUROL PO (10:08)
[2016-11-21] MEDS ORDERED: ULTRAM50 PO (23:28)
[2016-11-21] MEDS ORDERED: LYRICA150 MG PO (23:28)
[2016-11-21] MEDS ORDERED: C5 PO (23:29)
[2016-11-21] MEDS ORDERED: HUMALOG SC (23:32)
[2016-11-21] MEDS ORDERED: KLONO1 PO (23:33)
[2016-11-21] MEDS ORDERED: MEDROL8 MG PO (23:33)
[2016-11-21] MEDS ORDERED: PROVHFA INH (23:34)
[2016-11-21] MEDS ORDERED: LOP100 PO (23:34)
[2016-11-21] MEDS ORDERED: OS500+D PO (23:36)
[2016-11-21] MEDS ORDERED: SUCR PO (23:37)
[2016-11-21] MEDS ORDERED: FERROUS SULFATE PO (23:38)
[2016-11-21] MEDS ORDERED: COMBIVENT RESPIM4 GM INH (23:38)
[2016-11-21] MEDS ORDERED: ACET500CAP PO (23:39)
[2016-11-21] MEDS ORDERED: PR25 PO (23:41)
[2016-11-21] MEDS ORDERED: DIL2TAB PO (23:42)
== END 2016-10-19 11:14 | disposition home or self-care (01) | DRG 918 ==
LOC: ER 10:45 → CDU1 18:21 → CDU2 19:17
PROVIDERS: Emergency Medicine; Hospitalist; Internal Medicine
DX: T50.901A Poisoning by unspecified drugs, medicaments and biological substances, accidental (unintentional), initial encounter (principal); D68.51 Activated protein C resistance; E11.40 Type 2 diabetes mellitus with diabetic neuropathy, unspecified; K31.84 Gastroparesis; E24.2 Drug-induced Cushing's syndrome; E11.43 Type 2 diabetes mellitus with diabetic autonomic (poly)neuropathy; I27.2 Other secondary pulmonary hypertension; M32.9 Systemic lupus erythematosus, unspecified; M06.9 Rheumatoid arthritis, unspecified; G89.29 Other chronic pain; R27.0 Ataxia, unspecified; R35.0 Frequency of micturition; D64.9 Anemia, unspecified; J02.9 Acute pharyngitis, unspecified; T38.0X5A Adverse effect of glucocorticoids and synthetic analogues, initial encounter; Z86.711 Personal history of pulmonary embolism; Z87.440 Personal history of urinary (tract) infections; Z90.49 Acquired absence of other specified parts of digestive tract; Z90.710 Acquired absence of both cervix and uterus; Z79.52 Long term (current) use of systemic steroids; Z79.4 Long term (current) use of insulin; Z79.01 Long term (current) use of anticoagulants
CPT/HCPCS: 36600; 70450; 71275; 80053; 81001; 82805; 82962; 83605; 83735; 83880; 84145; 84443; 84484; 85025; 85610; 85652; 85730; 86140; 86160; 87040; 87070; 87880; 93005; 96374; 96376; 99285; A9270-GY; G0378; J0278; J1170; J2405; J2930; Q9967

== ENCOUNTER 2016-10-21 17:19 | Inpatient (IN) | payer BC ==
--- NOTE | ~2016-10-21 | DS ---
Discharge Summary [place] [address] [place]. [address] NAME: POONAM AGRAWAL : 79 STATUS : DIS IN PAT#: [id number] AGE: 36 ADM/REG DATE : 10/21/16 MR#: [id number] REPORT SERV DATE: 10/26/16 DICTATED BY: MAHNAZ APARICIO DATE: 10/25/16 REPORT STATUS : Draft TRANSCRIBED BY: MODKurtis DATE: 10/25/16 ADMISSION DATE: 10/21/2016 DISCHARGE DATE: 10/25/2016 CONSULTANTS: Rodrick Wade M.D., Infectious Disease. DISCHARGE DIAGNOSES: 1. Metabolic encephalopathy felt to be due to medications. 2. Episode of fever, leukocytosis, lethargy, suspected to be due to self injection of unknown substance. 3. Polysubstance abuse at least including marijuana. 4. 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 5. High INR with warfarin and other medications including Medrol and Rocephin and possibly excess self administration. 6. History of factor V Leiden with prior deep venous thromboses and pulmonary emboli. 7. Diabetes mellitus type 2 with peripheral neuropathy and A1c of 6.4% on 07/20/2016. 8. Hypertension. 9. History of mixed connective tissue disease. 10.Chronic pain. 11.Multiple previous infections including central lines with suspicion for manipulation and infection by the patient. 12.Multiple previous urinary tract infections. HISTORY: The patient was here 10/17/2016 through 10/19/2016 with suspected medication- induced altered mental status and gait problems and falls. She came back to the hospital on 10/21/2016 with subjective fever, chills, and myalgias. Her lactic acid was elevated at 3.1. Her white blood count was 12.8. Urine drug screen was positive for opiates and marijuana. Prescriptions at home include Dilaudid. There was suspicion that she was under the influence of medication excess again. Blood cultures drawn on admission, no growth. Because she complained of some back pain and flank pain, the ER did a CT scan of her chest, abdomen, and pelvis. There was mild cardiomegaly, otherwise, unremarkable CT of the chest. CT scan of the abdomen and pelvis, unremarkable other than previous cholecystectomy and hysterectomy. Our admitting partner held her Klonopin and Dilaudid and reduced her Lyrica from 150 mg twice a day to 75 mg twice a day and held her tramadol. By the next day, the patient was reportedly significantly better and our rounding partner was anticipating to let her go home, but reportedly at that time, she developed lethargy, hallucinations, and fever up to 103. The nursing staff reportedly had found her in the room with a syringe full of a liquid substance and they were concerned she either had already injected herself with it or was about to. The patient was kept in the hospital. The syringes were confiscated. She states it was her fosfomycin that she was just mixing up to take by mouth. Her white count jumped up from normal to 22.3. Her procalcitonin level was elevated at 29.7. Repeat blood cultures no growth. Her white blood count rapidly improved from 22 to 20 to 13 to 7 and she had no further fever. We had a sitter stay with her continuously. In the past, something similar had been suspected by the staff when she had a Discharge Summary [address] [place]. [address] NAME: POONAM AGRAWAL : 79 STATUS : DIS IN PAT#: [id number] AGE: 36 ADM/REG DATE : 10/21/16 MR#: [id number] REPORT SERV DATE: 10/26/16 DICTATED BY: MAHNAZ APARICIO DATE: 10/25/16 REPORT STATUS : Draft TRANSCRIBED BY: WILL DATE: 10/25/16 line sepsis with both coagulase-negative Staph and Acinetobacter soon after she had a fresh Kashif catheter placed and reportedly the patient was witnessed to be injecting some unknown substance into the port. She claimed that Lia had told her that she was supposed to keep her own line flushed. Currently, we had Dr. Wade see her from Infectious Disease. He indicated he felt that this was not likely an active infection and more likely injection of material. She was taken off antibiotics and her temperature stayed normal. White count normalized. Blood culture is negative. We did have a sitter with her throughout this time. I advised the patient we were concerned about that. I also told her we were concerned that the medicine she was taking at home may be causing her significant problems, so we have made changes including stopping her Dilaudid and reducing her Lyrica. While here, her INR was elevated. On admission, it was 4.9, climbed up to 8.2 on 10/23/2016, no active bleeding. We have not been given her Coumadin during this time, as best we can tell, she was not still taking any. We gave her one dose of vitamin K 2.5 mg orally on 10/24/2016, and by 10/25/2016, her INR was 2.2. Whether she did take some extra doses on her own or not, I do not know for sure. She denies it. She is on Medrol and Rocephin had been given to her recently, which can give elevation to her INR. We are cutting her Coumadin dose in half and she is to have a repeat tomorrow and I have asked her to follow up closely with Dr. Bess of Hematology because she states her PCP's office is so busy it sometimes take several weeks for them to react to her when she has a new medication added and she is not sure that they can tell her to come in sooner for a recheck INR if that happens. DISCHARGE MEDICATIONS: Os-Jj 500 mg daily, NovoLog sliding scale (she initially told us she was taking 34 units daily of subcu Levemir, but her sugars were low here and she admits now she hardly ever takes that), Medrol 16 mg daily from her auto finance sales rep, metoprolol 100 mg b.i.d., Lyrica 75 mg daily, Florastor 250 mg b.i.d., Carafate 1 g a.c. and h.s., Coumadin half of a 5 mg tablet each evening with her telephonic nurse case manager to follow up her level of her INR closely. I have told the patient if she has any change to her medications, increase, decrease, or new ones added that she should notify her telephonic nurse case manager, Dr. Bess, so they can monitor her Coumadin closely. Klonopin 1 mg p.o. b.i.d., which is a chronic medicine; Tylenol 650 q.6 hours p.r.n. pain; Humalog sliding scale; Mycostatin oral suspension p.r.n.; and tramadol 50 mg q.6 hours p.r.n. pain, she already has these at home. We stopped her Dilaudid. She has albuterol and Combivent that she can use as a rescue inhaler p.r.n. Slow iron that she is taking b.i.d. already. I spent 53 minutes today with the patient and with discharge planning. DICTATED BY: Pretty Alcocer/WILL Discharge Summary [address] [address] NAME: POONAM AGRAWAL : 78 STATUS : DIS IN PAT#: [id number] AGE: 36 ADM/REG DATE : 10/21/16 MR#: [id number] REPORT SERV DATE: 10/26/16 DICTATED BY: MAHNAZ APARICIO DATE: 10/25/16 REPORT STATUS : Draft TRANSCRIBED BY: WILL DATE: 10/25/16 Mahnaz Aparicio M.D. / [id number] CC: Pretty Alcocer M.D. Derek W Holland, M.D. Jay Philippose, M.D. David Sahaj, M.D. Carlos Baleeiro, M.D. MICHAEL BRIT, MD
--- NOTE | ~2016-10-21 | HP ---
History And Physical [place] [id number] [place]. [address] NAME: POONAM AGRAWLA : 78 STATUS : ADM Juany PAT#: [id number] AGE: 36 ADM/REG DATE : 10/21/16 MR#: [id number] REPORT SERV DATE: 10/22/16 DICTATED BY: ABELARDO SANCHEZ DATE: 10/21/16 REPORT STATUS : Draft TRANSCRIBED BY: MODL DATE: 10/21/16 DATE OF ADMISSION: 10/21/2016 CHIEF COMPLAINT: A 36-year-old female, presenting with lightheadedness and subjective fevers, chills, and myalgias. HISTORY OF PRESENTING ILLNESS: The patient's history was obtained through an interview with the patient, coupled with review of [facility] medical records. The patient was just hospitalized between 10/18/2015 and 10/19/2016 after she passed out at home. There was concern that she might have a flare-up of her chronic lupus or perhaps an occult infection, but short extensive workup was done on the patient's behalf here in the hospital and she was found to have no evidence of infection (an ESR of 6 and procalcitonin that was undetectable). Moreover, the patient had negative workup for an apparent flare up of her underlying lupus with normal complement levels. It was determined during hospital stay that the patient likely passed out and was feeling so ill because of significant cumulative polypharmacy with benzodiazepines, multiple narcotic medications. In fact when these medications were reduced, although the patient had chronic pain complaints. Her overall health and other complaints seemed to improve dramatically. Therefore, the patient was able to be adequately stabilized and sent home with recommendations to cut back on many of her chronic pain and anxiety medications. But over these last two days, since the patient has been home, she states that she has been feeling ill again with myalgias throughout, chronic arthritis, (but generally stable from her baseline) and lower back pain, aching quality, 6/10 severity without sciatica. She still complains of sore throat and fevers and chills as she did when she was here last. She also had complains of nausea, vomiting, lightheadedness, and lethargy. No chest pain. No shortness of breath. Mild chronic nonproductive cough. REVIEW OF SYSTEMS: Otherwise, a 14-point review of systems was obtained and was negative. PAST MEDICAL HISTORY: 1. Lupus, seen by Dr. Mendoza, on chronic prednisone, previously on Arava. 2. Factor V Leiden with history of DVT and pulmonary embolism, switch to Coumadin, followed by Dr. Bess. 3. TTP in January 2016. 4. C difficile colitis. 5. Diabetes. 6. Rheumatoid arthritis since 2003. 7. Gastroparesis. 8. Interstitial cystitis with recurrent urinary tract infections, including ESBL E coli. 9. Nephrolithiasis with history of stent placement, seen by Dr. Aiken. History And Physical [address] [address] NAME: POONAM AGRAWAL : 78 STATUS : ADM Juany PAT#: [id number] AGE: 36 ADM/REG DATE : 10/21/16 MR#: [id number] REPORT SERV DATE: 10/22/16 DICTATED BY: ABELARDO SANCHEZ DATE: 10/21/16 REPORT STATUS : Draft TRANSCRIBED BY: MODKurtis DATE: 10/21/16 10.Anemia with history of blood transfusions. 11.Gastritis, seen by Dr. Noe. 12.Lupus pneumonitis, seen by Dr. Duran. 13.Bacteremia with sepsis from central line infections with enterococcus as well as coag- negative staph as well as Acinetobacter. 14.Chronic steroid-induced cushingoid syndrome with a loss of teeth secondary to steroid, seen by Dr. Oleary. 15.Pulmonary hypertension. 16.Neuropathy. 17.Hypertension. PAST SURGICAL HISTORY: 1. Cholecystectomy. 2. Hysterectomy. 3. . 4. Tubal ligation. 5. Right shoulder surgery. 6. Kidney biopsy. ALLERGIES: COMPAZINE. SOCIAL HISTORY: No tobacco abuse. No alcohol abuse. Single, lives with boyfriend; is , disabled; has four children, ages 13, 15, 18, 20. Her two oldest children are both in college, one at [employer] and one at [employer]. 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 FAMILY HISTORY: Mother with lupus rheumatoid arthritis and heart disease. Father with chronic kidney disease. A strong family history of diabetes and cancer. CURRENT MEDICATIONS: Albuterol inhaler, calcium and vitamin D, Klonopin 1 mg p.o. b.i.d., iron supplement, Dilaudid 2 mg p.o. t.i.d. as needed, Levemir 34 units subcutaneously daily, sliding scale insulin, Combivent, Medrol 16 mg p.o. daily, Lopressor 100 mg p.o. b.i.d., nystatin swish and swallow, Lyrica 150 mg p.o. b.i.d., Florastor 250 mg p.o. b.i.d., sucralfate 1 g before meals and at bedtime, tramadol 100 mg p.o. b.i.d., iron supplement, Coumadin 5 mg p.o. daily. PHYSICAL EXAMINATION: VITAL SIGNS: Temperature 98.8, pulse 148, blood pressure 171/128, respiratory rate 16, and O2 saturation 96% on room air. GENERAL: Quite lethargic and groggy female, but she is in no evidence of acute distress. HEENT: Pupils equal, round, and reactive to light. No conjunctival pallor. No scleral icterus. Nares are patent. Oropharynx is clear of obstruction. Dry mucous membranes. NECK: Trachea midline. No thyromegaly. LYMPH: No cervical lymphadenopathy. No supraclavicular lymphadenopathy. RESPIRATORY: Clear to auscultation at bases. No wheezes, no rales, no rhonchi. Normal respiratory effort. History And Physical [address] [address] NAME: POONAM AGRAWAL : 78 STATUS : ADM Juany PAT#: [id number] AGE: 36 ADM/REG DATE : 10/21/16 MR#: [id number] REPORT SERV DATE: 10/22/16 DICTATED BY: ABELARDO SANCHEZ DATE: 10/21/16 REPORT STATUS : Draft TRANSCRIBED BY: WILL DATE: 10/21/16 CARDIOVASCULAR: Tachycardic, regular rhythm. No murmurs, rubs, or gallops. No extremity edema is appreciated. ABDOMEN: Soft, nontender, nondistended. Normal bowel sounds auscultated throughout. No hepatosplenomegaly. DERMATOLOGICAL: Warm and dry extremities. No pallor. No cyanosis. PSYCHIATRIC: The patient is very lethargic, but she does arouse quite easily to vocal stimuli. She is oriented to time, location, and to her recent history. She has a flat affect and irritable mood. LABORATORY DATA: Lactic acid 3.1, INR 4.9, lipase 132, AST 86. White blood cell count 12.8 with a normal differential, hemoglobin 16, hematocrit 49, platelets 308. Sodium 140, potassium 3.1, chloride 102, bicarbonate 29, BUN 8, creatinine 1.0, glucose 62. Urinalysis shows 5 white blood cells. Urine drug screen positive for opiates and marijuana. STUDIES: 1. CT scan of the chest without contrast as well as the abdomen and pelvis, all showed no acute abnormality of the chest, abdomen, or pelvis. 2. EKG by my own evaluation shows sinus tachycardia, right bundle-branch block. ASSESSMENT AND PLAN: 1. Polypharmacy. The patient was actually admitted for the same problem just few days ago. The patient really needs to drastically reduce medications. I will begin this process now. I am going to discontinue Dilaudid altogether and just place the patient on a p.r.n. dose of lower tramadol. I will also start the patient on a reduced dose of benzodiazepines, reduce her dose of Lyrica. There is also noted the patient has been using marijuana as evidence by urine drug screen, likely exacerbating her polypharmacy issues. 2. Lactic acidosis. Place on IV fluids. Provide supportive care. 3. Hypokalemia. Replace potassium. Check magnesium. 4. Lupus. 5. History of pulmonary embolism with good INR, pharmacy to dose. 6. Leukocytosis, but with normal differential and a recent negative infection workup. 7. Tachycardia. We will place on IV fluids. Taper back benzodiazepines and narcotics and monitor response. KPL/MODL Abelardo Sanchez M.D. / [id number] CC: MD Epi Gilbert M.D.
[~2016-10-21 17:19] MED LIST changes: +LEVEMIR SC; +MONUROL PO; +SLOW FE IRON PO
[2016-10-21 17:23] LABS: ASCORBIC ACID (UR NOT ORDER) NEG (NEG); BILIRUBIN, URINE NEGATIVE (NEG); ER URINALYSIS TAT 0 Hrs 12 Mins; KETONE, URINE NEGATIVE (NEG); LEUKOCYTE ESTERASE(NOT OR TRACE (NEG); NITRITE (URINE) POS (NEG); WBC (NOT ORDERED) (RFLEX) 5 (0-5)
[2016-10-21 18:39] LABS: BASOPHILS 0.5 %; BASOPHILS ABSOLUTE 0.07 10/3/uL (0.0-0.16); EOSINOPHILS 1.5 %; EOSINOPHILS ABSOLUTE 0.19 10/3/uL (0.0-0.53); HEMATOCRIT 49.4 % (36.0-48.0); HEMOGLOBIN 15.6 g/dL (12.0-16.0); IMMATURE GRANULOCYTES 4.6 %; LYMPHOCYTES 22.7 %; LYMPHOCYTES ABSOLUTE 2.91 10/3/uL (0.67-4.30); MEAN CORPUS HGB CONC 31.6 g/dL (32.0-36.0); MEAN CORPUSCULAR HEMOGLOB 27.6 pg (26.0-34.0); MEAN CORPUSCULAR VOLUME 87.3 fL (80-100); MEAN PLATELET VOLUME 9.9 fL (9.2-13.0); MONOCYTES 10.1 %; MONOCYTES ABSOLUTE 1.29 10/3/uL (0.21-1.20); NEUTROPHILS 60.6 %; NEUTROPHILS ABSOLUTE 7.75 10/3/uL (2.02-8.40); PLATELET COUNT 308 10/3/uL (150-400); RBC DISTRIBUTION WIDTH 14.6 % (12.0-16.0); RED CELL COUNT 5.66 10/6/uL (4.0-5.6); WHITE BLOOD CELLS 12.8 10/3/uL (4.5-10.5)
[2016-10-21 18:45] LABS: IMMATURE GRANULOCYTES ABSOLUTE 0.59 10/3/uL (0.0-0.11); MANUAL DIFF NO %
[2016-10-21 18:46] LABS: PARTIAL THROMBO TIME 35.8 SEC (22.5-37.2)
[2016-10-21 18:47] LABS: INTERNATIONAL NORMAL RATI 4.9 UNITS (-)
[2016-10-21 18:51] LABS: PROTIME (NOT ORD) 45.4 SEC (12.0-14.5)
[2016-10-21 18:54] LABS: A/G RATIO 0.9 (0.7-1.9); ALBUMIN 3.7 G/DL (3.5-5.0); BUN (BLOOD UREA NITROGEN) 8 MG/DL (6-23); CHLORIDE, SERUM 102 MMOL/L (96-112); CO2 (CARBON DIOXIDE) 29 MMOL/L (24-34); CREATININE 1.03 MG/DL (0.55-1.02); GFR AFRICAN AMERICAN 80 ML/MIN (>=60); GFR NON AFRICAN AMERICAN 69 ML/MIN (>=60); GLOBULIN 4.2 G/DL (2.5-4.1); SGOT(AST) 86 U/L (5-40); SGPT(ALT) 49 U/L (5-65); SODIUM, SERUM 140 MMOL/L (135-148); TOTAL BILIRUBIN 0.2 MG/DL (0-1.2); TOTAL PROTEIN 7.9 G/DL (6.0-8.5)
[2016-10-21 18:56] LABS: LACTATE 3.1 MMOL/L (0.3-2.4)
[2016-10-21 19:00] LABS: ALKALINE PHOSPHATASE 117 U/L (45-117); GLUCOSE, SERUM 62 MG/DL (60-99); POTASSIUM, SERUM 3.1 MMOL/L (3.5-5.3)
[2016-10-21 19:02] LABS: BAND NEUTROPHILS 2 %; EOSINOPHILS 2 %; EOSINOPHILS ABSOLUTE (CALC) 0.26 10/3/uL (0.0-0.53); ER DIFF TAT 0 Hrs 29 Mins; IMMATURE GRANS ABSOLUTE (CALC) 0.51 10/3/uL (0.0-0.11); LYMPHOCYTES 36 %; LYMPHOCYTES ABSOLUTE (CALC) 4.61 10/3/uL (0.67-4.30); METAMYELOCYTES 4 %; MONOCYTES 7 %; NEUTROPHILS ABSOLUTE (CALC) 6.53 10/3/uL (2.02-8.40); SEGMENTED NEUTROPHIL (0) 49 %; TOTAL NUCLEATED CELLS 100
[2016-10-21 19:06] LABS: PLATELET ESTIMATE ADQ (ADEQUATE)
[2016-10-21 19:07] LABS: RBC MORPHOLOGY NORM (NORMAL)
[2016-10-21 19:57] LABS: AMPHETAMINES (NOT ORD) NEG (NEG); BARBITURATES (NOT ORDERED NEG (NEG); BENZODIAZEPINES (NOT ORD) NEG (NEG); CANNABINOIDS (THC) POS (NEG); COCAINE (NOT ORDERED) NEG (NEG); OPIATES POS (NEG); PHENCYCLIDINE(PCP) NEG (NEG); TRICYCLICS NEG (NEG)
[2016-10-22 08:19] LABS: HEMOGLOBIN 13.9 g/dL (12.0-16.0); MEAN CORPUS HGB CONC 31.3 g/dL (32.0-36.0); MEAN CORPUSCULAR HEMOGLOB 27.3 pg (26.0-34.0); MEAN CORPUSCULAR VOLUME 87.2 fL (80-100); MEAN PLATELET VOLUME 9.6 fL (9.2-13.0); PLATELET COUNT 275 10/3/uL (150-400); RBC DISTRIBUTION WIDTH 14.6 % (12.0-16.0); RED CELL COUNT 5.09 10/6/uL (4.0-5.6); WHITE BLOOD CELLS 10.1 10/3/uL (4.5-10.5)
[2016-10-22 08:20] LABS: HEMATOCRIT 44.4 % (36.0-48.0); MANUAL DIFF YES %
[2016-10-22 08:27] LABS: INTERNATIONAL NORMAL RATI 6.1 UNITS (-); PROTIME (NOT ORD) 53.8 SEC (12.0-14.5)
[2016-10-22 09:04] LABS: BAND NEUTROPHILS 2 %; EOSINOPHILS 5 %; EOSINOPHILS ABSOLUTE (CALC) 0.51 10/3/uL (0.0-0.53); LYMPHOCYTES 18 %; LYMPHOCYTES ABSOLUTE (CALC) 1.82 10/3/uL (0.67-4.30); METAMYELOCYTES 1 %; MONOCYTES 6 %; MONOCYTES ABSOLUTE (CALC) 0.61 10/3/uL (0.21-1.20); NEUTROPHILS ABSOLUTE (CALC) 7.07 10/3/uL (2.02-8.40); PLATELET ESTIMATE ADQ (ADEQUATE); RBC MORPHOLOGY NORM (NORMAL); SEGMENTED NEUTROPHIL (0) 68 %; TOTAL NUCLEATED CELLS 100
[2016-10-22 10:30] LABS: VACUOLATED NEUTROPHILES FEW
[2016-10-22 18:22] LABS: BASOPHILS 0.1 %; BASOPHILS ABSOLUTE 0.02 10/3/uL (0.0-0.16); EOSINOPHILS 0.5 %; EOSINOPHILS ABSOLUTE 0.11 10/3/uL (0.0-0.53); HEMATOCRIT 43.1 % (36.0-48.0); HEMOGLOBIN 13.8 g/dL (12.0-16.0); IMMATURE GRANULOCYTES 1.2 %; IMMATURE GRANULOCYTES ABSOLUTE 0.26 10/3/uL (0.0-0.11); LYMPHOCYTES 1.5 %; LYMPHOCYTES ABSOLUTE 0.34 10/3/uL (0.67-4.30); MEAN CORPUSCULAR HEMOGLOB 27.5 pg (26.0-34.0); MEAN CORPUSCULAR VOLUME 85.9 fL (80-100); MEAN PLATELET VOLUME 10.2 fL (9.2-13.0); MONOCYTES 2.3 %; MONOCYTES ABSOLUTE 0.52 10/3/uL (0.21-1.20); NEUTROPHILS 94.4 %; NEUTROPHILS ABSOLUTE 21.02 10/3/uL (2.02-8.40); PLATELET COUNT 276 10/3/uL (150-400); RBC DISTRIBUTION WIDTH 14.7 % (12.0-16.0); RED CELL COUNT 5.02 10/6/uL (4.0-5.6)
[2016-10-22 18:23] LABS: MANUAL DIFF NO %; WHITE BLOOD CELLS 22.3 10/3/uL (4.5-10.5)
[2016-10-22 18:52] LABS: A/G RATIO 0.8 (0.7-1.9); ALBUMIN 3.1 G/DL (3.5-5.0); BUN (BLOOD UREA NITROGEN) 9 MG/DL (6-23); CALCIUM, SERUM 8.6 MG/DL (8.5-10.4); CHLORIDE, SERUM 103 MMOL/L (96-112); CO2 (CARBON DIOXIDE) 28 MMOL/L (24-34); GFR AFRICAN AMERICAN 95 ML/MIN (>=60); GFR NON AFRICAN AMERICAN 82 ML/MIN (>=60); GLOBULIN 3.7 G/DL (2.5-4.1); POTASSIUM, SERUM 3.7 MMOL/L (3.5-5.3); SGOT(AST) 111 U/L (5-40); SGPT(ALT) 69 U/L (5-65); SODIUM, SERUM 136 MMOL/L (135-148); TOTAL BILIRUBIN 0.3 MG/DL (0-1.2); TOTAL PROTEIN 6.8 G/DL (6.0-8.5)
[2016-10-22 18:53] LABS: ALKALINE PHOSPHATASE 161 U/L (45-117); BAND NEUTROPHILS 7 %; CPK 2804 U/L (0-200); GLUCOSE, SERUM 108 MG/DL (60-99); LYMPHOCYTES 1 %; LYMPHOCYTES ABSOLUTE (CALC) 0.22 10/3/uL (0.67-4.30); MONOCYTES 2 %; MONOCYTES ABSOLUTE (CALC) 0.45 10/3/uL (0.21-1.20); NEUTROPHILS ABSOLUTE (CALC) 21.63 10/3/uL (2.02-8.40); SEGMENTED NEUTROPHIL (0) 90 %; TOTAL NUCLEATED CELLS 100
[2016-10-22 18:54] LABS: PLATELET ESTIMATE ADQ (ADEQUATE); RBC MORPHOLOGY NORM (NORMAL)
[2016-10-22 19:48] LABS: WBC (NOT ORDERED) (RFLEX) 0 (0-5)
[2016-10-22 20:03] LABS: ASCORBIC ACID (UR NOT ORDER) NEG (NEG); BILIRUBIN, URINE NEGATIVE (NEG); KETONE, URINE NEGATIVE (NEG); LEUKOCYTE ESTERASE(NOT OR NEG (NEG)
[2016-10-23 04:58] LABS: ASCORBIC ACID (UR NOT ORDER) NEG (NEG); BILIRUBIN, URINE NEGATIVE (NEG); KETONE, URINE NEGATIVE (NEG); LEUKOCYTE ESTERASE(NOT OR NEG (NEG); WBC (NOT ORDERED) (RFLEX) 2 (0-5)
[2016-10-23 11:22] LABS: BASOPHILS 0.1 %; BASOPHILS ABSOLUTE 0.02 10/3/uL (0.0-0.16); EOSINOPHILS 0.2 %; EOSINOPHILS ABSOLUTE 0.04 10/3/uL (0.0-0.53); HEMATOCRIT 39.3 % (36.0-48.0); HEMOGLOBIN 12.8 g/dL (12.0-16.0); IMMATURE GRANULOCYTES 0.6 %; IMMATURE GRANULOCYTES ABSOLUTE 0.12 10/3/uL (0.0-0.11); LYMPHOCYTES 4.7 %; LYMPHOCYTES ABSOLUTE 0.96 10/3/uL (0.67-4.30); MEAN CORPUS HGB CONC 32.6 g/dL (32.0-36.0); MEAN CORPUSCULAR HEMOGLOB 28.1 pg (26.0-34.0); MEAN CORPUSCULAR VOLUME 86.2 fL (80-100); MEAN PLATELET VOLUME 9.6 fL (9.2-13.0); MONOCYTES 6.3 %; MONOCYTES ABSOLUTE 1.29 10/3/uL (0.21-1.20); NEUTROPHILS 88.1 %; NEUTROPHILS ABSOLUTE 17.96 10/3/uL (2.02-8.40); PLATELET COUNT 248 10/3/uL (150-400); RBC DISTRIBUTION WIDTH 14.6 % (12.0-16.0); RED CELL COUNT 4.56 10/6/uL (4.0-5.6); WHITE BLOOD CELLS 20.4 10/3/uL (4.5-10.5)
[2016-10-23 11:27] LABS: MANUAL DIFF NO %
[2016-10-23 11:30] LABS: PROTIME (NOT ORD) 67.7 SEC (12.0-14.5)
[2016-10-23 11:32] LABS: INTERNATIONAL NORMAL RATI 8.2 UNITS (-)
[2016-10-23 11:54] LABS: BUN (BLOOD UREA NITROGEN) 11 MG/DL (6-23); CALCIUM, SERUM 8.6 MG/DL (8.5-10.4); CHLORIDE, SERUM 108 MMOL/L (96-112); CO2 (CARBON DIOXIDE) 28 MMOL/L (24-34); CREATININE 0.78 MG/DL (0.55-1.02); GFR AFRICAN AMERICAN 113 ML/MIN (>=60); GFR NON AFRICAN AMERICAN 97 ML/MIN (>=60); GLUCOSE, SERUM 101 MG/DL (60-99)
[2016-10-23 11:55] LABS: CPK 1206 U/L (0-200); SODIUM, SERUM 143 MMOL/L (135-148)
[2016-10-23 12:21] LABS: PROCALCITONIN 29.76 ng/mL (<0.5)
[2016-10-24 05:43] LABS: BASOPHILS 0.1 %; BASOPHILS ABSOLUTE 0.01 10/3/uL (0.0-0.16); EOSINOPHILS 0.3 %; EOSINOPHILS ABSOLUTE 0.04 10/3/uL (0.0-0.53); HEMATOCRIT 40.5 % (36.0-48.0); HEMOGLOBIN 12.9 g/dL (12.0-16.0); IMMATURE GRANULOCYTES 0.9 %; IMMATURE GRANULOCYTES ABSOLUTE 0.12 10/3/uL (0.0-0.11); LYMPHOCYTES 8.6 %; LYMPHOCYTES ABSOLUTE 1.17 10/3/uL (0.67-4.30); MEAN CORPUS HGB CONC 31.9 g/dL (32.0-36.0); MEAN CORPUSCULAR HEMOGLOB 27.4 pg (26.0-34.0); MEAN PLATELET VOLUME 10.1 fL (9.2-13.0); MONOCYTES 6.9 %; MONOCYTES ABSOLUTE 0.94 10/3/uL (0.21-1.20); NEUTROPHILS 83.2 %; NEUTROPHILS ABSOLUTE 11.33 10/3/uL (2.02-8.40); PLATELET COUNT 273 10/3/uL (150-400); RBC DISTRIBUTION WIDTH 14.3 % (12.0-16.0); RED CELL COUNT 4.71 10/6/uL (4.0-5.6); WHITE BLOOD CELLS 13.6 10/3/uL (4.5-10.5)
[2016-10-24 05:44] LABS: MANUAL DIFF NO %
[2016-10-24 05:51] LABS: PROTIME (NOT ORD) 66.7 SEC (12.0-14.5)
[2016-10-24 11:30] LABS: SGOT(AST) 29 U/L (5-40)
[2016-10-24 11:46] LABS: A/G RATIO 0.8 (0.7-1.9); ALBUMIN 2.7 G/DL (3.5-5.0); CALCIUM, SERUM 8.9 MG/DL (8.5-10.4); CHLORIDE, SERUM 106 MMOL/L (96-112); CO2 (CARBON DIOXIDE) 28 MMOL/L (24-34); CREATININE 0.74 MG/DL (0.55-1.02); GFR AFRICAN AMERICAN 120 ML/MIN (>=60); GFR NON AFRICAN AMERICAN 103 ML/MIN (>=60); GLOBULIN 3.6 G/DL (2.5-4.1); GLUCOSE, SERUM 104 MG/DL (60-99); POTASSIUM, SERUM 3.7 MMOL/L (3.5-5.3); SGPT(ALT) 41 U/L (5-65); SODIUM, SERUM 142 MMOL/L (135-148); TOTAL BILIRUBIN 0.1 MG/DL (0-1.2); TOTAL PROTEIN 6.3 G/DL (6.0-8.5)
[2016-10-24 11:47] LABS: ALKALINE PHOSPHATASE 100 U/L (45-117); BUN (BLOOD UREA NITROGEN) 17 MG/DL (6-23)
[2016-10-24 12:21] LABS: PROCALCITONIN 17.78 ng/mL (<0.5)
[2016-10-25 09:55] LABS: BASOPHILS 0.1 %; BASOPHILS ABSOLUTE 0.01 10/3/uL (0.0-0.16); EOSINOPHILS 0.7 %; EOSINOPHILS ABSOLUTE 0.05 10/3/uL (0.0-0.53); HEMATOCRIT 42.4 % (36.0-48.0); HEMOGLOBIN 13.6 g/dL (12.0-16.0); IMMATURE GRANULOCYTES 3.6 %; IMMATURE GRANULOCYTES ABSOLUTE 0.26 10/3/uL (0.0-0.11); LYMPHOCYTES 25.1 %; LYMPHOCYTES ABSOLUTE 1.82 10/3/uL (0.67-4.30); MEAN CORPUS HGB CONC 32.1 g/dL (32.0-36.0); MEAN CORPUSCULAR VOLUME 84.3 fL (80-100); MEAN PLATELET VOLUME 10.3 fL (9.2-13.0); MONOCYTES 8.6 %; MONOCYTES ABSOLUTE 0.62 10/3/uL (0.21-1.20); NEUTROPHILS 61.9 %; NEUTROPHILS ABSOLUTE 4.48 10/3/uL (2.02-8.40); PLATELET COUNT 229 10/3/uL (150-400); RBC DISTRIBUTION WIDTH 14.4 % (12.0-16.0); RED CELL COUNT 5.03 10/6/uL (4.0-5.6)
[2016-10-25 09:57] LABS: MANUAL DIFF NO %; WHITE BLOOD CELLS 7.2 10/3/uL (4.5-10.5)
[2016-10-25 10:01] LABS: INTERNATIONAL NORMAL RATI 2.2 UNITS (-)
[2016-10-25 10:02] LABS: PROTIME (NOT ORD) 24.5 SEC (12.0-14.5)
[2016-10-25 10:08] LABS: BUN (BLOOD UREA NITROGEN) 16 MG/DL (6-23); CALCIUM, SERUM 8.6 MG/DL (8.5-10.4); CHLORIDE, SERUM 106 MMOL/L (96-112); CREATININE 0.98 MG/DL (0.55-1.02); GFR AFRICAN AMERICAN 85 ML/MIN (>=60); GFR NON AFRICAN AMERICAN 74 ML/MIN (>=60); POTASSIUM, SERUM 3.9 MMOL/L (3.5-5.3); SODIUM, SERUM 139 MMOL/L (135-148)
[2016-10-25 10:09] LABS: CO2 (CARBON DIOXIDE) 22 MMOL/L (24-34); GLUCOSE, SERUM 158 MG/DL (60-99)
[2016-10-25] MEDS ORDERED: T PO (17:06)
[2016-11-21] MEDS ORDERED: LYRICA150 MG PO (23:28)
[2016-11-21] MEDS ORDERED: ULTRAM50 PO (23:28)
[2016-11-21] MEDS ORDERED: C5 PO (23:29)
[2016-11-21] MEDS ORDERED: HUMALOG SC (23:32)
[2016-11-21] MEDS ORDERED: MEDROL8 MG PO (23:33)
[2016-11-21] MEDS ORDERED: KLONO1 PO (23:33)
[2016-11-21] MEDS ORDERED: PROVHFA INH (23:34)
[2016-11-21] MEDS ORDERED: LOP100 PO (23:34)
[2016-11-21] MEDS ORDERED: OS500+D PO (23:36)
[2016-11-21] MEDS ORDERED: SUCR PO (23:37)
[2016-11-21] MEDS ORDERED: COMBIVENT RESPIM4 GM INH (23:38)
[2016-11-21] MEDS ORDERED: FERROUS SULFATE PO (23:38)
[2016-11-21] MEDS ORDERED: ACET500CAP PO (23:39)
[2016-11-21] MEDS ORDERED: PR25 PO (23:41)
[2016-11-21] MEDS ORDERED: DIL2TAB PO (23:42)
== END 2016-10-25 18:58 | disposition home or self-care (01) | DRG 917 ==
LOC: ER 17:19 → 6NO 22:14
PROVIDERS: Emergency Medicine; Hospitalist; Internal Medicine
DX: T50.901A Poisoning by unspecified drugs, medicaments and biological substances, accidental (unintentional), initial encounter (principal); G92 Toxic encephalopathy; D68.51 Activated protein C resistance; E11.40 Type 2 diabetes mellitus with diabetic neuropathy, unspecified; M35.1 Other overlap syndromes; Y92.239 Unspecified place in hospital as the place of occurrence of the external cause; I10 Essential (primary) hypertension; G89.29 Other chronic pain; W19.XXXA Unspecified fall, initial encounter; R26.9 Unspecified abnormalities of gait and mobility; F12.10 Cannabis abuse, uncomplicated; F11.10 Opioid abuse, uncomplicated; Z90.49 Acquired absence of other specified parts of digestive tract; Z90.710 Acquired absence of both cervix and uterus; Z79.4 Long term (current) use of insulin; Z79.01 Long term (current) use of anticoagulants; Z87.440 Personal history of urinary (tract) infections; Z91.81 History of falling
CPT/HCPCS: 71020; 71260; 74177; 80048; 80053; 80150; 80305; 81001; 82550; 82962; 83605; 83690; 83880; 84145; 85025; 85610; 85730; 86140; 87040; 87389; 93005; 94640; 96374; 96375; 99285; A9270-GY; J0278; J1170; J3370; Q9967